=== PATIENT | female | born 1940 | race Caucasian/White ===

== ENCOUNTER 2017-03-15 14:06 | Inpatient (IN) | payer MEDICARE, BC ==
--- NOTE | 2017-03-15 14:21 | EDM.PDOC ---
ED HPI GENERAL MEDICAL PROBLEM - General Chief Complaint: Respiratory Problem Stated Complaint: SENT BY ANNA Time Seen by Provider: 03/15/17 14:20 Source of Information: Reports: Patient, Provider (I was contacted by physician working in the walk-in clinic over at [place]. Identified that she is exhibiting signs of congestive heart failure. They're not able to do cardiac markers but feel that she is too ill to go home.) History Limitations: Reports: No Limitations - History of Present Illness INITIAL COMMENTS - FREE TEXT/NARRATIVE: 76-year-old female presents the ED after being referred from [place] walk-in clinic. Patient currently has developed gradual increased dyspnea over the last 3-5 days. There is some suggestion that she has not been taking her Lasix tablets perhaps for the last 4 days. She is getting mixed up and what she spoke to take and has no close to what medicine she is taking. She does have a mild nonproductive cough. She has orthopnea and has had to wake up in the night short of breath and set up in the easy chair the last 3 nights to breathe. She does not use home oxygen. She feels a little weak and short of breath on minimal exertion. She appetite is rather poor as well. No fever or chills.Sputum production. Has a history of known congestive heart failure. Onset: Gradual (Probably over the last 4-5 days.) Onset Date: 03/10/17 Duration: Day(s): Location: Reports: Chest (Shortness of breath on minimal exertion and orthopnea. ) Quality: Reports: Same as Previous Episode Severity: Moderate Improves with: Reports: Rest Worsens with: Reports: Movement (Urine getting dressed makes her short of breath.) Context: Denies: Activity, Exercise, Lifting, Sick Contact, Trauma, Other Associated Symptoms: Reports: Confusion, Cough, Loss of Appetite, Malaise ( Nonproductive), Shortness of Breath, Weakness. Denies: Chest Pain, cough w sputum, Diaphoresis, Fever/Chills, Headaches, Nausea/Vomiting, Rash, Seizure, Syncope Treatments PANEL ASSEMBLER: Reports: Other (see below) Back Pain Score (Numeric/FACES): 5 - Related Data Allergies Allergy/AdvReac Type Severity Reaction Status Date / Time No Known Allergies Allergy Verified 12/22/15 11:58 Home Meds: Home Meds Aspirin [Ecotrin] 81 mg PO DAILY 12/22/15 [History] Calcium Carbonate [Calcium] 600 mg PO DAILY 12/22/15 [History] Cholecalciferol (Vitamin D3) [Vitamin D3] 1,000 units PO DAILY 12/22/15 [History ] Denosumab [Prolia] 60 mg SUBCUT ASDIRECTED 12/22/15 [History] Flaxseed Oil 1,000 mg PO DAILY 12/22/15 [History] Furosemide [Lasix] 40 mg PO DAILY 12/22/15 [History] Levothyroxine [Synthroid] 112 mcg PO DAILY 12/22/15 [History] Losartan [Cozaar] 50 mg PO DAILY 12/22/15 [History] Methotrexate 20 mg PO GILMAN 12/22/15 [History] Omeprazole 20 mg PO DAILY 12/22/15 [History] Prednisone [IJD: Prednisone] 10 mg PO WE 12/22/15 [History] Vitamin B Complex 1 cap PO DAILY 12/22/15 [History] Multivitamins,Therapeutic [Thera] 1 each PO WITHBREAKFAST tablet 12/27/15 [Rx] Naproxen Sodium 220 mg PO BID PRN 03/15/17 [History] Vitamin B Complex [B Complex] 1 tab PO DAILY 03/15/17 [History] Past Medical History Cardiovascular History: Reports: Afib (She is on Xarelto I believe because of atrial fibrillation), Heart Failure, Heart Murmur, High Cholesterol, Hypertension Respiratory History: Reports: Pulmonary Fibrosis (Questionable history of pulmonary fibrosis.) Genitourinary History: Reports: Urinary Incontinence (Stress and urge components.) Musculoskeletal History: Reports: Osteoarthritis, Osteoporosis Endocrine/Metabolic History: Reports: Hypothyroidism Social & Family History - Tobacco Use Smoking Status *Q: Never Smoker Years of Tobacco use: 40 Used Tobacco, but Quit: No - Recreational Drug Use Recreational Drug Use: No - Living Situation & Occupation Living situation: Reports: Occupation: Retired ED ROS GENERAL - Review of Systems Review Of Systems: See Below Constitutional: Reports: Malaise, Weakness, Fatigue, Decreased Appetite, Weight Loss. Denies: Fever, Chills HEENT: Reports: Hearing Loss. Denies: Contact Lenses, Nosebleed, Nose Pain, Rhinitis, Sinus Problem, Throat Pain (Mild.), Throat Swelling, Vertigo, Vision Change Respiratory: Reports: Shortness of Breath, Cough. Denies: Wheezing, Pleuritic Chest Pain, Sputum, Hemoptysis (Nonproductive) Cardiovascular: Reports: Blood Pressure Problem, Dyspnea on Exertion ( Chronically in both lower extremities), Edema, Orthopnea. Denies: Chest Pain, Claudication (Has mildly elevated high blood pressure), Lightheadedness (The last 3 nights.) Endocrine: Reports: No Symptoms GI/Abdominal: Reports: Constipation, Decreased Appetite. Denies: Abdominal Pain : Reports: Dysuria (noted yesterday), Frequency, Incontinence (Both stress and urge components.) Musculoskeletal: Reports: Joint Pain (Knees hips low back and neck at times) Skin: Reports: No Symptoms Neurological: Reports: Confusion (Mild at times.), Difficulty Walking (Due to getting short of breath). Denies: Trouble Speaking, Gait Disturbance Psychiatric: Reports: No Symptoms Hematologic/Lymphatic: Reports: No Symptoms Immunologic: Reports: No Symptoms ED EXAM, GENERAL - Physical Exam Exam: See Below Exam Limited By: No Limitations General Appearance: Alert, WD/WN, Mild Distress (O2 sats are 82% on room air. Placed on oxygen at 3 L/m by nasal prongs) Eye Exam: Bilateral Eye: Normal Inspection Throat/Mouth: Other (Tongue is mildly dry and shriveled and coated.) Head: Atraumatic, Normocephalic Neck: Normal Inspection, Limited Range of Motion. No: Supple, Carotid Bruit ( There is a aortic stenosis murmur that radiates up into the right carotid artery.), Lymphadenopathy (L), Lymphadenopathy (R) Respiratory/Chest: Chest Non-Tender, Respiratory Distress (Moderate tachypnea at rest.), Decreased Breath Sounds (Decreased air entry to the lower 25% of lung magaña posteriorly), Rales (Very fine crackles at the bases of both lungs.) . No: Rhonchi Cardiovascular: Regular Rate, Rhythm (Regular rhythm but no P waves are identified on the monitor. Questionable atrial fibrillation versus ectopic atrial rhythm.), JVD (3 cm below the angle of her mandible.), Systolic Murmur ( Grade 2/6 systolic ejection murmur pansystolic heard best at the right sternal border and radiates up into the right carotid artery suggestive of aortic stenosis. ), Other. No: Normal Peripheral Pulses Peripheral Pulses: 1+: Dorsalis Pedis (L), Dorsalis Pedis (R) GI/Abdominal: Normal Bowel Sounds, Soft, Non-Tender, No Organomegaly, No Abnormal Bruit, No Mass, Pelvis Stable Extremities: Pedal Edema (She is wearing a cast boot brace on her left leg. Apparently she broke her fibula 6 weeks ago in the cast boot brace is due to come off next week. 2-3+ pitting edema on the right lower extremity 2+ on the left lower extremity.), Other Neurological: Alert, Oriented, CN II-XII Intact, Normal Cognition, No Motor/ Sensory Deficits. No: Normal Gait, Normal Reflexes Psychiatric: Normal Affect, Normal Mood Skin Exam: Warm, Dry, Pallor (Mild pallor.) EKG INTERPRETATION EKG Date: 03/15/17 Time: 14:45 Rhythm: NSR Rate (Beats/Min): 97 [place]: Normal P-Wave: Present QRS: Other (There is decreased voltage in both the precordial and limb leads.) ST-T: Normal QT: Normal EKG Interpretation Comments: Normal ECG. Course - Vital Signs Last Recorded V/S: Last Vital Signs Temp 36.0 C 03/15/17 14:32 Pulse 99 03/15/17 14:32 Resp 27 H 03/15/17 14:32 BP 114/75 03/15/17 14:32 Pulse Ox 98 03/15/17 14:49 - Orders/Labs/Meds Orders: Active Orders 24 hr Category Date Time Status EKG Documentation Completion [RC] STAT Care 03/15/17 14:29 Active Oxygen Therapy [RC] ASDIRECTED Care 03/15/17 14:31 Active Peripheral IV Care [RC] . DIRECTED Care 03/15/17 14:30 Active CULTURE URINE [RM] Stat Lab 03/15/17 16:34 Uncollected Sodium Chloride 0.9% [Saline Flush] Med 03/15/17 14:30 Active 10 ml FLUSH ASDIRECTED PRN cefTRIAXone [Rocephin] 1 gm Med 03/15/17 16:49 Active Sodium Chloride 0.9% [Normal Saline] 100 ml IV ONETIME Peripheral IV Insertion Adult [OM.PC] Stat Oth 03/15/17 14:30 Ordered Medication Orders Ceftriaxone Sodium 1 gm/ (Sodium Chloride) 100 mls @ 200 mls/hr IV ONETIME ONE Stop: 03/15/17 17:18 Sodium Chloride (Saline Flush) 10 ml FLUSH ASDIRECTED PRN PRN Reason: Keep Vein Open Last Admin: 03/15/17 15:18 Dose: 10 ml Labs: Laboratory Tests 03/15/17 03/15/17 03/15/17 Range/Units 14:45 14:45 14:45 WBC 8.58 (3.98-10.04) K/mm3 RBC 4.01 (3.98-5.22) M/mm3 Hgb 12.0 (11.2-15.7) gm/L Hct 35.5 (34.1-44.9) % MCV 88.5 (79.4-94.8) fl MCH 29.9 (25.6-32.2) pg MCHC 33.8 (32.2-35.5) g/dl RDW Std Deviation 47.6 H (36.4-46.3) fL Plt Count 559 H (182-369) K/mm3 MPV 8.5 L (9.4-12.3) fl Neutrophils % (Manual) 89 H (40-60) % Band Neutrophils % 0 (0-10) % Lymphocytes % (Manual) 9 L (20-40) % Atypical Lymphs % 0 % Monocytes % (Manual) 2 (2-10) % Eosinophils % (Manual) 0 L (0.7-5.8) % Basophils % (Manual) 0 L (0.1-1.2) Platelet Estimate Increased Plt Morphology Comment See note Polychromasia 1+ slight Anisocytosis 1+ slight Macrocytosis 1+ slight RBC Morph Comment Not Reportable PT 12.5 (8.0-13.0) SECONDS INR 1.14 Sodium 133 L (136-145) mEq/L Potassium 4.0 (3.5-5.1) mEq/L Chloride 99 (98-107) mEq/L Carbon Dioxide 24 (21-32) mEq/L Anion Gap 14.0 (5-15) BUN 24 H (7-18) mg/dL Creatinine 1.4 H (0.55-1.02) mg/dL Est Cr Clr Drug Dosing 27.84 mL/min Estimated GFR (MDRD) 36 (>60) mL/min BUN/Creatinine Ratio 17.1 (14-18) Glucose 106 (83-115) mg/dL Calcium 9.6 (8.5-10.1) mg/dL Magnesium 1.9 (1.8-2.4) mg/dl Total Bilirubin 0.9 (0.2-1.0) mg/dL AST 44 H (15-37) U/L ALT 16 (14-59) U/L Alkaline Phosphatase 70 (46-116) U/L CK-MB (CK-2) 1.3 (0-3.6) ng/ml Troponin I < 0.017 (0.00-0.056) ng/mL C-Reactive Protein 17.8 H* (<1.0) mg/dL NT-Pro-B Natriuret Pep 1216 H (0-450) pg/mL Total Protein 7.4 (6.4-8.2) g/dl Albumin 2.5 L (3.4-5.0) g/dl Globulin 4.9 gm/dL Albumin/Globulin Ratio 0.5 L (1-2) Urine Color (Yellow) Urine Appearance (Clear) Urine pH (5.0-8.0) Ur Specific Mcconnell (1.005-1.030) Urine Protein (Negative) Urine Glucose (UA) (Negative) Urine Ketones (Negative) Urine Occult Blood (Negative) Urine Nitrite (Negative) Urine Bilirubin (Negative) Urine Urobilinogen (0.2-1.0) Ur Leukocyte Esterase (Negative) Urine RBC (0-5) /hpf Urine WBC (0-5) /hpf Ur Epithelial Cells (0-5) /hpf Urine Bacteria (FEW) /hpf Urine Mucus (FEW) /hpf 03/15/17 Range/Units 16:00 WBC (3.98-10.04) K/mm3 RBC (3.98-5.22) M/mm3 Hgb (11.2-15.7) gm/L Hct (34.1-44.9) % MCV (79.4-94.8) fl MCH (25.6-32.2) pg MCHC (32.2-35.5) g/dl RDW Std Deviation (36.4-46.3) fL Plt Count (182-369) K/mm3 MPV (9.4-12.3) fl Neutrophils % (Manual) (40-60) % Band Neutrophils % (0-10) % Lymphocytes % (Manual) (20-40) % Atypical Lymphs % % Monocytes % (Manual) (2-10) % Eosinophils % (Manual) (0.7-5.8) % Basophils % (Manual) (0.1-1.2) Platelet Estimate Plt Morphology Comment Polychromasia Anisocytosis Macrocytosis RBC Morph Comment PT (8.0-13.0) SECONDS INR Sodium (136-145) mEq/L Potassium (3.5-5.1) mEq/L Chloride (98-107) mEq/L Carbon Dioxide (21-32) mEq/L Anion Gap (5-15) BUN (7-18) mg/dL Creatinine (0.55-1.02) mg/dL Est Cr Clr Drug Dosing mL/min Estimated GFR (MDRD) (>60) mL/min BUN/Creatinine Ratio (14-18) Glucose (83-115) mg/dL Calcium (8.5-10.1) mg/dL Magnesium (1.8-2.4) mg/dl Total Bilirubin (0.2-1.0) mg/dL AST (15-37) U/L ALT (14-59) U/L Alkaline Phosphatase (46-116) U/L CK-MB (CK-2) (0-3.6) ng/ml Troponin I (0.00-0.056) ng/mL C-Reactive Protein (<1.0) mg/dL NT-Pro-B Natriuret Pep (0-450) pg/mL Total Protein (6.4-8.2) g/dl Albumin (3.4-5.0) g/dl Globulin gm/dL Albumin/Globulin Ratio (1-2) Urine Color Yellow (Yellow) Urine Appearance Clear (Clear) Urine pH 6.0 (5.0-8.0) Ur Specific Mcconnell 1.015 (1.005-1.030) Urine Protein Negative (Negative) Urine Glucose (UA) Negative (Negative) Urine Ketones Negative (Negative) Urine Occult Blood Negative (Negative) Urine Nitrite Negative (Negative) Urine Bilirubin Negative (Negative) Urine Urobilinogen 1.0 (0.2-1.0) Ur Leukocyte Esterase 2+ H (Negative) Urine RBC 0-5 (0-5) /hpf Urine WBC 10-20 H (0-5) /hpf Ur Epithelial Cells 5-10 H (0-5) /hpf Urine Bacteria Moderate H (FEW) /hpf Urine Mucus Not seen (FEW) /hpf Meds: Medications Generic Name Dose Route Start Last Admin Trade Name Freq PRN Reason Stop Dose Admin Ceftriaxone Sodium 1 gm/ 100 mls @ 200 mls/hr 03/15/17 16:49 Sodium Chloride IV 03/15/17 17:18 ONETIME ONE Sodium Chloride 10 ml 03/15/17 14:30 03/15/17 15:18 Saline Flush FLUSH 10 ml ASDIRECTED PRN Administration Keep Vein Open Discontinued Medications Generic Name Dose Route Start Last Admin Trade Name Freq PRN Reason Stop Dose Admin Furosemide 40 mg 03/15/17 14:32 03/15/17 15:12 Lasix IVPUSH 03/15/17 14:33 40 mg NOW ONE Administration - Radiology Interpretation Free Text/Narrative:: 76 year old female sent to the ED from [place] walk-in clinic where she presented with dyspnea. It is suspect that she has been noncompliant with her medications over the last 2-3 days. Today not taking her Lasix for her heart failure. She has orthopnea and his sats to sit up in the easy chair to get her breath last 2-3 nights. Does have a nonproductive cough. No fever or chills. She is on Xarelto to prevent DVT in the left leg since she has been in a boot cast since breaking her fibula 6 weeks ago. She is in sinus rhythm at 97/m. She is tachypneic at rest with O2 sats of only 82% on room air. She will be placed on 3 L/m by nasal cannula. This achieved O2 sats of 97%. Plan routine labs to include troponin CK-MB fractions. Fibroglandular labs were done over at [facility] but they did not do troponins are magnesium hour BMPs. Patient is potentially immunocompromised due to rheumatoid arthritis and being on methotrexate. - Re-Assessments/Exams Free Text/Narrative Re-Assessment/Exam: 03/15/17 14:54 ECG shows sinus rhythm at 97/m with no signs of ischemia. Chest x -ray reveals a diffuse reticular pattern suggestive of pulmonary fibrosis when compared to chest x-ray in February 2016 the lungs were clear at that time. This would suggest that the fine reticular pattern is likely vascular in origin. Plan peripheral IV lock Lasix 40 mg IV. 03/15/17 15:49 White count is 8.58. Hemoglobin is 12.0 hematocrit of 35.5. Platelet count is elevated at 559,000. Differential pending. PT is 12.5 INR is 1.14. Sodium slightly low at 133 potassium 4.0. Chloride 99 bicarbonate 24. And a gap is 14.0 BUNs is 24. Creatinine is 1.4. GFR is 36. Glucose 106 calcium 9.6 magnesium normal 1.9. AST is mildly elevated at 44. CK-MB fraction is normal 1.3 troponin I is less than 0.017. BNP is 1216 .otal protein is 7.4 of the abdomen fraction is low at 2.5. Urinalysis is pending 03/15/17 16:01 CRP is markedly elevated at 17.8. 03/15/17 17:[address] Frias --video control operator hospitalist and patient will be admitted to the hospital MedSur status on telemetry. Departure - Departure Time of Disposition: 17:03 Disposition: Admitted As Inpatient 65 Condition: Fair Clinical Impression: Hypoxia, Chronic renal insufficiency, stage III (moderate), Osteoporosis, Rheumatoid arthritis Urinary tract infection Qualifiers: Urinary tract infection type: acute cystitis Acute exacerbation of CHF (congestive heart failure) Qualifiers: Congestive heart failure type: diastolic Qualified Code(s): I50.33 - Acute on chronic diastolic (congestive) heart failure - Discharge Information Referrals: aKllie Cazares MD [Primary Care Provider] - Forms: ED Department Discharge - My Orders Last 24 Hours: My Active Orders 03/15/17 14:29 EKG Documentation Completion [RC] STAT 03/15/17 14:30 Peripheral IV Care [RC] . DIRECTED Sodium Chloride 0.9% [Saline Flush] 10 ml FLUSH ASDIRECTED PRN Peripheral IV Insertion Adult [OM.PC] Stat 03/15/17 14:31 Oxygen Therapy [RC] ASDIRECTED 03/15/17 16:34 CULTURE URINE [RM] Stat 03/15/17 16:49 cefTRIAXone [Rocephin] 1 gm Sodium Chloride 0.9% [Normal Saline] 100 ml IV ONETIME - Assessment/Plan Last 24 Hours: My Active Orders 03/15/17 14:29 EKG Documentation Completion [RC] STAT 03/15/17 14:30 Peripheral IV Care [RC] . DIRECTED Sodium Chloride 0.9% [Saline Flush] 10 ml FLUSH ASDIRECTED PRN Peripheral IV Insertion Adult [OM.PC] Stat 03/15/17 14:31 Oxygen Therapy [RC] ASDIRECTED 03/15/17 16:34 CULTURE URINE [RM] Stat 03/15/17 16:49 cefTRIAXone [Rocephin] 1 gm Sodium Chloride 0.9% [Normal Saline] 100 ml IV ONETIME
[2017-03-15] MEDS ORDERED: Sodium Chloride 0.9% 10 ML Syringe FLUSH PRN (14:30)
[2017-03-15] MEDS ORDERED: Furosemide 40 MG/4 ML VIAL IVPUSH ONE (14:32)
--- NOTE | 2017-03-15 14:54 | CR ---
Chest: Portable view of the chest was obtained. Comparison: Prior chest x-ray of 12/22/15. Heart size and mediastinum are within normal limits for portable technique. Lung markings are slightly increased some of which is accentuated from technique. Difficult to exclude mild pulmonary vascular congestion or other interstitial process. No alveolar type densities are seen. Slight scoliosis is noted within the spine. Bony structures are osteopenic. Two orthopedic screws are seen within the right humerus. Impression: 1. Lung markings are slightly increased as described above. Other incidental findings. Diagnostic code #3
[2017-03-15] MEDS ORDERED: cefTRIAXone 1 GM in Sodium Chloride 0.9% 100 ML IV ONE (16:49)
--- NOTE | 2017-03-15 17:43 | PCM.HP ---
H&P History of Present Illness - General Date of Service: 03/22/17 Admit Problem/Dx: Admission Diagnosis/Problem Admission Diagnosis/Problem Hypoxia Source of Information: Patient, Old Records, Provider, RN Notes Reviewed History Limitations: Reports: No Limitations, Physical Impairment - History of Present Illness Initial Comments - Free Text/Narative: This is a 76 yo elderly white female with past medical hx/o defibrillation, heart failure with unknown EF, heart murmur, hyperlipidemia, hypertension, pulmonary fibrosis, RA, urinary incontinence, osteoarthritis, osteoporosis, and hypothyroidism,who presents to the emergency department with complaints of worsening dyspnea for over 3 days now. She admits to nonproductive cough, orthopnea and shortness of breath. She carries a history of pulmonary fibrosis but she is not on home O2. Per ED notes, patient has stopped taking her Lasix in the past 4 days. Her initial workup in emergency department shows a CBC remarkable for platelet of 559, neutrophils of 89% and lymphocytes of 9%. Her chemistry is remarkable for sodium of 133, BUN of 24, creatinine of 1.4, AST of 44, CRP of 17.8, proBNP of 1216, and albumin of 2.5. Her UA is suggestive of urinary tract infection. Her CXR shows increased lung markings. Patient is being admitted for respiratory distress/hypoxia and acute congestive heart failure. She is CPR only. Back Pain Score (Numeric/FACES): 5 - Related Data Allergies/Adverse Reactions: Allergies Allergy/AdvReac Type Severity Reaction Status Date / Time No Known Allergies Allergy Verified 12/22/15 11:58 Home Medications: Home Meds Aspirin [Ecotrin] 81 mg PO DAILY 12/22/15 [History] Calcium Carbonate [Calcium] 600 mg PO DAILY 12/22/15 [History] Cholecalciferol (Vitamin D3) [Vitamin D3] 1,000 units PO DAILY 12/22/15 [History ] Denosumab [Prolia] 60 mg SUBCUT ASDIRECTED 12/22/15 [History] Flaxseed Oil 1,000 mg PO DAILY 12/22/15 [History] Furosemide [Lasix] 60 mg PO DAILY 12/22/15 [History] Levothyroxine [Synthroid] 112 mcg PO DAILY 12/22/15 [History] Losartan [Cozaar] 50 mg PO DAILY 12/22/15 [History] Methotrexate 20 mg PO GILMAN 12/22/15 [History] Omeprazole 20 mg PO DAILY 12/22/15 [History] Prednisone [IJD: Prednisone] 10 mg PO WE 12/22/15 [History] Multivitamins,Therapeutic [Thera] 1 each PO WITHBREAKFAST tablet 12/27/15 [Rx] Naproxen Sodium 220 mg PO BID PRN 03/15/17 [History] Vitamin B Complex [B Complex] 1 tab PO DAILY 03/15/17 [History] Past Medical History Cardiovascular History: Reports: Afib (She is on Xarelto I believe because of atrial fibrillation), Heart Failure, Heart Murmur, High Cholesterol, Hypertension Respiratory History: Reports: Pulmonary Fibrosis (Questionable history of pulmonary fibrosis.) Other Respiratory History: congestive heartr failure Genitourinary History: Reports: Urinary Incontinence (Stress and urge components.) Musculoskeletal History: Reports: Osteoarthritis, Osteoporosis Endocrine/Metabolic History: Reports: Hypothyroidism - Past Surgical History HEENT Surgical History: Reports: Cataract Surgery Social & Family History - Tobacco Use Smoking Status *Q: Never Smoker Years of Tobacco use: 40 Used Tobacco, but Quit: No Month Tobacco Last Used: 20 yrs - Caffeine Use Caffeine Use: Reports: Coffee, Tea - Recreational Drug Use Recreational Drug Use: No - Living Situation & Occupation Living situation: Reports: Occupation: Retired H&P Review of Systems - Review of Systems: Review Of Systems: See Below General: Reports: Malaise, Weakness, Fatigue, Decreased Appetite. Denies: Fever , Chills HEENT: Reports: No Symptoms Pulmonary: Reports: Shortness of Breath, Cough Cardiovascular: Reports: Dyspnea on Exertion, Orthopnea, Edema, Blood Pressure Problem. Denies: Chest Pain, Lightheadedness Gastrointestinal: Reports: Constipation, Decreased Appetite. Denies: Abdominal Pain, Nausea, Vomiting Genitourinary: Reports: Dysuria, Frequency, Incontinence Musculoskeletal: Reports: Joint Pain Skin: Denies: Cyanosis, Jaundice, Mottled, Pallor, Diaphoresis, Bruising, Rash, Erythema, Change in Color Psychiatric: Reports: Confusion (intermittent) Neurological: Reports: Difficulty Walking, Weakness, Gait Disturbance. Denies: Pre-Existing Deficit Hematologic/Lymphatic: Reports: No Symptoms Immunologic: Reports: No Symptoms Exam - Exam Exam: See Below - Vital Signs Vital Signs: Last Vital Signs Temp 36.0 C 03/15/17 14:32 Pulse 99 03/15/17 14:32 Resp 27 H 03/15/17 14:32 BP 114/75 03/15/17 14:32 Pulse Ox 98 03/15/17 14:49 Weight: 61.235 kg - Exam Quality Assessment: Supplemental Oxygen General: Alert, Oriented, Cooperative. No: Mild Distress HEENT: Conjunctiva Clear, EACs Clear, Hearing Intact, Nares Patent, Normal Nasal Septum, Posterior Pharynx Clear, Pupils Equal, Pupils Reactive. No: Mucosa Moist & [place] Neck: Supple, Trachea Midline, +2 Carotid Pulse wo Bruit Lungs: Decreased Breath Sounds, Rales Cardiovascular: Regular Rate, Regular Rhythm, Systolic Murmur GI/Abdominal Exam: Normal Bowel Sounds, Soft, Non-Tender, No Organomegaly, No Distention, No Abnormal Bruit (Female) Exam: Deferred Rectal (Female) Exam: Deferred Back Exam: Normal Inspection, Decreased Range of Motion Extremities: Normal Inspection, Normal Range of Motion, Non-Tender, Pedal Edema , Limited Range of Motion (left lower extremity due to cast boot). No: Increased Warmth Skin: Warm, Dry, Intact Neuro Extensive - Mental Status: Oriented x3, Normal Cognition, Memory Intact Neuro Extensive - Motor, Sensory, Reflexes: CN II-XII Intact (limited but grossly intact), Abnormal Gait Psychiatric: Alert, Normal Affect, Normal Mood - Patient Data Lab Results Last 24 hrs: Laboratory Results - last 24 hr 03/15/17 03/15/17 03/15/17 Range/Units 14:45 14:45 14:45 WBC 8.58 (3.98-10.04) K/mm3 RBC 4.01 (3.98-5.22) M/mm3 Hgb 12.0 (11.2-15.7) gm/L Hct 35.5 (34.1-44.9) % MCV 88.5 (79.4-94.8) fl MCH 29.9 (25.6-32.2) pg MCHC 33.8 (32.2-35.5) g/dl RDW Std Deviation 47.6 H (36.4-46.3) fL Plt Count 559 H (182-369) K/mm3 MPV 8.5 L (9.4-12.3) fl Neutrophils % (Manual) 89 H (40-60) % Band Neutrophils % 0 (0-10) % Lymphocytes % (Manual) 9 L (20-40) % Atypical Lymphs % 0 % Monocytes % (Manual) 2 (2-10) % Eosinophils % (Manual) 0 L (0.7-5.8) % Basophils % (Manual) 0 L (0.1-1.2) Platelet Estimate Increased Plt Morphology Comment See note Polychromasia 1+ slight Anisocytosis 1+ slight Macrocytosis 1+ slight RBC Morph Comment Not Reportable PT 12.5 (8.0-13.0) SECONDS INR 1.14 Sodium 133 L (136-145) mEq/L Potassium 4.0 (3.5-5.1) mEq/L Chloride 99 (98-107) mEq/L Carbon Dioxide 24 (21-32) mEq/L Anion Gap 14.0 (5-15) BUN 24 H (7-18) mg/dL Creatinine 1.4 H (0.55-1.02) mg/dL Est Cr Clr Drug Dosing 27.84 mL/min Estimated GFR (MDRD) 36 (>60) mL/min BUN/Creatinine Ratio 17.1 (14-18) Glucose 106 (83-115) mg/dL Calcium 9.6 (8.5-10.1) mg/dL Magnesium 1.9 (1.8-2.4) mg/dl Total Bilirubin 0.9 (0.2-1.0) mg/dL AST 44 H (15-37) U/L ALT 16 (14-59) U/L Alkaline Phosphatase 70 (46-116) U/L CK-MB (CK-2) 1.3 (0-3.6) ng/ml Troponin I < 0.017 (0.00-0.056) ng/mL C-Reactive Protein 17.8 H* (<1.0) mg/dL NT-Pro-B Natriuret Pep 1216 H (0-450) pg/mL Total Protein 7.4 (6.4-8.2) g/dl Albumin 2.5 L (3.4-5.0) g/dl Globulin 4.9 gm/dL Albumin/Globulin Ratio 0.5 L (1-2) Urine Color (Yellow) Urine Appearance (Clear) Urine pH (5.0-8.0) Ur Specific [place] (1.005-1.030) Urine Protein (Negative) Urine Glucose (UA) (Negative) Urine Ketones (Negative) Urine Occult Blood (Negative) Urine Nitrite (Negative) Urine Bilirubin (Negative) Urine Urobilinogen (0.2-1.0) Ur Leukocyte Esterase (Negative) Urine RBC (0-5) /hpf Urine WBC (0-5) /hpf Ur Epithelial Cells (0-5) /hpf Urine Bacteria (FEW) /hpf Urine Mucus (FEW) /hpf //17 Range/Units 16:00 WBC (3.98-10.04) K/mm3 RBC (3.98-5.22) M/mm3 Hgb (11.2-15.7) gm/L Hct (34.1-44.9) % MCV (79.4-94.8) fl MCH (25.6-32.2) pg MCHC (32.2-35.5) g/dl RDW Std Deviation (36.4-46.3) fL Plt Count (182-369) K/mm3 MPV (9.4-12.3) fl Neutrophils % (Manual) (40-60) % Band Neutrophils % (0-10) % Lymphocytes % (Manual) (20-40) % Atypical Lymphs % % Monocytes % (Manual) (2-10) % Eosinophils % (Manual) (0.7-5.8) % Basophils % (Manual) (0.1-1.2) Platelet Estimate Plt Morphology Comment Polychromasia Anisocytosis Macrocytosis RBC Morph Comment PT (8.0-13.0) SECONDS INR Sodium (136-145) mEq/L Potassium (3.5-5.1) mEq/L Chloride (98-107) mEq/L Carbon Dioxide (21-32) mEq/L Anion Gap (5-15) BUN (7-18) mg/dL Creatinine (0.55-1.02) mg/dL Est Cr Clr Drug Dosing mL/min Estimated GFR (MDRD) (>60) mL/min BUN/Creatinine Ratio (14-18) Glucose (83-115) mg/dL Calcium (8.5-10.1) mg/dL Magnesium (1.8-2.4) mg/dl Total Bilirubin (0.2-1.0) mg/dL AST (15-37) U/L ALT (14-59) U/L Alkaline Phosphatase (46-116) U/L CK-MB (CK-2) (0-3.6) ng/ml Troponin I (0.00-0.056) ng/mL C-Reactive Protein (<1.0) mg/dL NT-Pro-B Natriuret Pep (0-450) pg/mL Total Protein (6.4-8.2) g/dl Albumin (3.4-5.0) g/dl Globulin gm/dL Albumin/Globulin Ratio (1-2) Urine Color Yellow (Yellow) Urine Appearance Clear (Clear) Urine pH 6.0 (5.0-8.0) Ur Specific [place] 1.015 (1.005-1.030) Urine Protein Negative (Negative) Urine Glucose (UA) Negative (Negative) Urine Ketones Negative (Negative) Urine Occult Blood Negative (Negative) Urine Nitrite Negative (Negative) Urine Bilirubin Negative (Negative) Urine Urobilinogen 1.0 (0.2-1.0) Ur Leukocyte Esterase 2+ H (Negative) Urine RBC 0-5 (0-5) /hpf Urine WBC 10-20 H (0-5) /hpf Ur Epithelial Cells 5-10 H (0-5) /hpf Urine Bacteria Moderate H (FEW) /hpf Urine Mucus Not seen (FEW) /hpf Result Diagrams: 03/16/17 05:50 03/16/17 05:50 EKG INTERPRETATION EKG Date: 03/15/17 Time: 14:45 Rhythm: NSR Rate (Beats/Min): 97 [place]: Normal P-Wave: Present QT: Normal *Q Meaningful Use (ADM) - VTE *Q VTE Criteria *Q: - Stroke *Q Stroke Criteria *Q: - AMI *Q AMI Criteria *Q: Problem List Initiated/Reviewed/Updated: Yes Orders Last 24hrs: Active Orders 24 hr Category Date Time Status Admission Status [Patient Status] [ADT] Routine ADT 03/15/17 17:03 Active EKG Documentation Completion [RC] STAT Care 03/15/17 14:29 Active Oxygen Therapy [RC] ASDIRECTED Care 03/15/17 14:31 Active Peripheral IV Care [RC] . DIRECTED Care 03/15/17 14:30 Active CULTURE URINE [RM] Stat Lab 03/15/17 16:00 Received Sodium Chloride 0.9% [Saline Flush] Med 03/15/17 14:30 Active 10 ml FLUSH ASDIRECTED PRN Peripheral IV Insertion Adult [OM.PC] Stat Oth 03/15/17 14:30 Ordered Medication Orders Sodium Chloride (Saline Flush) 10 ml FLUSH ASDIRECTED PRN PRN Reason: Keep Vein Open Last Admin: 03/15/17 15:18 Dose: 10 ml Assessment/Plan Comment:: Assessment/Plan: Acute: Respiratory Distress/Hypoxia - Likely 2/2 CHF and Pulmonary Fibrosis - Supplemental O2 CHF with Unknown EF - Mild - ProBNP 1216 - CXR shows pulmonary vascular congestion and fibrosis - Heart failure protocol: diuretics, salt/fluid restriction, is/os and daily weight check - 2D echo in AM UTI - UA suggestive of UTI - Pos suprapubic tenderness - Risk Factor: Urinary Incontinence - Received IV Rocephin in ED; will continue Abx - UA Cx/Sx Elevated CRP - 2/2 RA or Auto-immune Disease Chronic: Hx/o PAF; now off xarelto HF with Unknown EF HTN HLD Pulmonary Fibrosis RA Urinary Incontinence: Mixed OA Osteoporosis Hypothyroidism Plan: Admit to Med-Surg Routine AM Labs Resume Home Meds PT/OT/RT consult DVT PPx: Lovenox SubQ daily SW/CM for d/c planning Code status: CPR only Additional orders as above
[2017-03-15] MEDS ORDERED: Ondansetron 4 MG/2 ML SDV IV PRN (17:56)
[2017-03-15] MEDS ORDERED: Promethazine 12.5 MG in Sodium Chloride 0.9% 50 ML IV PRN (17:56)
[2017-03-15] MEDS ORDERED: Bisacodyl 5 MG Tab PO PRN (17:56)
[2017-03-15] MEDS ORDERED: Temazepam 7.5 MG Cap PO PRN (17:56)
[2017-03-15] MEDS ORDERED: Docusate Sodium 100 MG Cap PO PRN (17:56)
[2017-03-15] MEDS ORDERED: HYDROmorphone 0.5 MG/0.5 ML Syringe IVPUSH PRN (17:56)
[2017-03-15] MEDS ORDERED: Polyethylene Glycol 3350 Powder 17 GM Packet PO PRN (17:56)
[2017-03-15] MEDS ORDERED: LORazepam 2 MG/ML MDV IV PRN (17:56)
[2017-03-15] MEDS ORDERED: hydrALAZINE 20 MG/ML SDV IVPUSH PRN (18:01)
[2017-03-15] MEDS ORDERED: Denosumab 60 MG/1 ML Syringe SUBCUT SCH (18:15)
[2017-03-15] MEDS ORDERED: Magnesium Sulfate/Water 2 GM in Premix Bag 1 BAG IV ONE (19:15)
[2017-03-15] MEDS: Furosemide 20 MG Tab PO SCH (22:31)
[2017-03-15] MEDS ORDERED: Magnesium Sulfate/Water 50 ML IV ONE (23:00)
[2017-03-15] MEDS ORDERED: Diphtheria,Pertussis(Acell),Tetanus Vaccine 0.5 ML SDV IM ONE (23:34)
[2017-03-16] MEDS: Albuterol/Ipratropium 3.0-0.5 MG/3 ML Neb Soln NEB PRN ×3 (05:23→21:34)
[2017-03-16] MEDS: Levothyroxine 112 MCG Tab PO SCH (06:02)
[2017-03-16] MEDS: Pantoprazole 40 MG Tab.CR PO SCH (06:02)
[2017-03-16] MEDS: Multivitamins,Therapeutic Tab PO SCH (06:02)
[2017-03-16] MEDS: Furosemide 20 MG Tab PO SCH ×2 (06:03→13:43)
--- NOTE | 2017-03-16 07:04 | PCM.PN ---
- General Info Date of Service: 03/16/17 Admission Dx/Problem (Free Text): Admission Diagnosis/Problem Admission Diagnosis/Problem Hypoxia Subjective Update: Follow Up Functional Status: Reports: Pain Controlled, Tolerating Diet, Urinating. Denies : New Symptoms - Review of Systems General: Denies: Fever, Chills HEENT: Reports: No Symptoms Pulmonary: Reports: Shortness of Breath. Denies: Cough Cardiovascular: Denies: Chest Pain, Palpitations, Dyspnea on Exertion, Lightheadedness Gastrointestinal: Denies: Abdominal Pain, Nausea, Vomiting Genitourinary: Reports: No Symptoms Musculoskeletal: Reports: No Symptoms Skin: Denies: Cyanosis, Pallor, Diaphoresis, Bruising Neurological: Reports: Confusion (intermittent), Difficulty Walking, Gait Disturbance. Denies: Weakness Psychiatric: Denies: No Symptoms, Depression, Anxiety, Hallucinations Systems Review Comment:: No significant overnight or acute issues. She feels better this morning. She did not sleep well due to constant beeping noise of her O2 monitor. She denies any chest pain or difficulty breathing. No fever or chills. - Patient Data Vitals - Most Recent: Last Vital Signs Temp 36.9 C 03/16/17 03:45 Pulse 99 03/16/17 03:45 Resp 16 03/16/17 03:45 BP 112/55 L 03/16/17 03:45 Pulse Ox 92 L 03/16/17 05:45 Weight - Most Recent: 61.235 kg I&O - Last 24 Hours: Intake & Output 03/15/17 03/16/17 03/16/17 22:59 06:59 14:59 Intake Total 640 Output Total 500 Balance 140 Lab Results Last 24 Hours: Laboratory Results - last 24 hr 03/16/17 03/16/17 Range/Units 05:50 05:50 WBC 8.03 (3.98-10.04) K/mm3 RBC 3.71 L (3.98-5.22) M/mm3 Hgb 10.9 L (11.2-15.7) gm/L Hct 33.2 L (34.1-44.9) % MCV 89.5 (79.4-94.8) fl MCH 29.4 (25.6-32.2) pg MCHC 32.8 (32.2-35.5) g/dl RDW Std Deviation 47.7 H (36.4-46.3) fL Plt Count 487 H (182-369) K/mm3 MPV 8.7 L (9.4-12.3) fl Neut % (Auto) 78.7 H (34.0-71.1) % Lymph % (Auto) 15.6 L (19.3-51.7) % [place] % (Auto) 2.9 L (4.7-12.5) % Eos % (Auto) 2.1 (0.7-5.8) Baso % (Auto) 0.2 (0.1-1.2) % Neut # (Auto) 6.32 H (1.56-6.13) K/mm3 Lymph # (Auto) 1.25 (1.18-3.74) K/mm3 [place] # (Auto) 0.23 L (0.24-0.36) K/mm3 Eos # (Auto) 0.17 (0.04-0.36) K/mm3 Baso # (Auto) 0.02 (0.01-0.08) K/mm3 Sodium 135 L (136-145) mEq/L Potassium 3.7 (3.5-5.1) mEq/L Chloride 101 (98-107) mEq/L Carbon Dioxide 23 (21-32) mEq/L Anion Gap 14.7 (5-15) BUN 23 H (7-18) mg/dL Creatinine 1.2 H (0.55-1.02) mg/dL Est Cr Clr Drug Dosing 33.90 mL/min Estimated GFR (MDRD) 44 (>60) mL/min BUN/Creatinine Ratio 19.2 H (14-18) Glucose 115 (83-115) mg/dL Calcium 9.3 (8.5-10.1) mg/dL Magnesium 2.3 (1.8-2.4) mg/dl Med Orders - Current: Current Medications Acetaminophen (Tylenol) 650 mg PO Q4H PRN PRN Reason: Pain (Mild 1-3)/fever Hydrocodone Bitart/Acetaminophen ([place] 325-5 Mg) 1 tab PO Q4H PRN PRN Reason: Pain (moderate 4-6) Albuterol/Ipratropium (Duoneb 3.0-0.5 Mg/3 Ml) 3 ml NEB Q4H PRN PRN Reason: Shortness Of Breath/wheezing Last Admin: 03/16/17 05:23 Dose: 3 ml Aspirin (Halfprin) 81 mg PO DAILY [facility] Bisacodyl (Dulcolax) 5 mg PO DAILY PRN PRN Reason: Constipation Calcium Carbonate/Glycine (Calcium Carbonate) 600 mg PO DAILY [facility] Cholecalciferol (Vitamin D3) 1,000 units PO DAILY [facility] Denosumab (Prolia) 60 mg SUBCUT ASDIRECTED [facility] Docusate Sodium (Colace) 100 mg PO BID PRN PRN Reason: Constipation Enoxaparin Sodium (Lovenox) 30 mg SUBCUT DAILY [facility] Furosemide (Lasix) 20 mg PO BIDDIURETIC [facility] Last Admin: 03/16/17 06:03 Dose: 20 mg Hydralazine HCl (Apresoline) 10 mg IVPUSH Q4H PRN PRN Reason: Hypertension Hydromorphone HCl (Dilaudid) 0.25 mg IVPUSH Q2H PRN PRN Reason: Pain (severe 7-10) Promethazine HCl 12.5 mg/ (Sodium Chloride) 50.5 mls @ 100 mls/hr IV Q6H PRN PRN Reason: Nausea/Vomiting Ceftriaxone Sodium 1 gm/ (Sodium Chloride) 100 mls @ 200 mls/hr IV Q24H [facility] Levothyroxine Sodium (Levothyroxine) 112 mcg PO ACBRK [facility] Last Admin: 03/16/17 06:02 Dose: 112 mcg Lorazepam (Ativan) 0.5 mg IV Q6H PRN PRN Reason: Anxiety Magnesium Sulfate (Pharmacy To Dose - Magnesium Replacement) 1 dose .XX ASDIRECTED [facility] Methotrexate (Methotrexate) 20 mg PO GILMAN [facility] Metoprolol Tartrate (Lopressor) 5 mg IVPUSH Q4H PRN PRN Reason: Tachycardia Multivitamins (Thera) 1 each PO WITHBREAKFAST [facility] Last Admin: 03/16/17 06:02 Dose: 1 each Non-Formulary Medication (Flaxseed Oil) 1,000 mg PO DAILY [facility] Ondansetron HCl (Zofran) 4 mg IV Q6H PRN PRN Reason: Nausea/Vomiting Pantoprazole Sodium (Protonix) 40 mg PO DAILY@0700 [facility] Last Admin: 03/16/17 06:02 Dose: 40 mg Polyethylene Glycol (Miralax) 17 gm PO DAILY PRN PRN Reason: Constipation Potassium Chloride (Pharmacy To Dose - Potassium Replacement) 1 dose .XX ASDIRECTED [facility] Prednisone (Prednisone) 10 mg PO We@0800 [facility] Senna/Docusate Sodium (Senna Plus) 1 tab PO BID PRN PRN Reason: Constipation Sodium Chloride (Saline Flush) 10 ml FLUSH ASDIRECTED PRN PRN Reason: Keep Vein Open Last Admin: 03/15/17 15:18 Dose: 10 ml Temazepam (Restoril) 7.5 mg PO BEDTIME PRN PRN Reason: Sleep Vitamin B Complex/Vitamin C (Super B With Vitamin C) 1 cap PO DAILY [facility] Discontinued Medications Diphtheria/Tetanus/Acell Pertussis (Adacel) 0.5 ml IM .ONCE ONE Stop: 03/15/17 23:35 Furosemide (Lasix) 40 mg IVPUSH NOW ONE Stop: 03/15/17 14:33 Last Admin: 03/15/17 15:12 Dose: 40 mg Ceftriaxone Sodium 1 gm/ (Sodium Chloride) 100 mls @ 200 mls/hr IV ONETIME ONE Stop: 03/15/17 17:18 Last Admin: 03/15/17 17:05 Dose: 200 mls/hr Magnesium Sulfate (Magnesium Sulfate 2 Gm In Water 50 Ml) 50 mls @ 50 mls/hr IV ONETIME ONE Stop: 03/15/17 23:59 Last Admin: 03/15/17 23:18 Dose: 50 mls/hr - Exam Quality Assessment: Supplemental Oxygen General: Alert, Oriented, Cooperative, No Acute Distress HEENT: Pupils Equal, Pupils Reactive, EOMI, Mucous Membr. Moist/[place] Neck: Supple, Trachea Midline Lungs: Normal Respiratory Effort, Decreased Breath Sounds Cardiovascular: Regular Rate, Regular Rhythm GI/Abdominal Exam: Normal Bowel Sounds, Soft, Non-Tender, No Organomegaly, No Distention (Female) Exam: Deferred Back Exam: Normal Inspection, Decreased Range of Motion Extremities: Normal Inspection, Normal Range of Motion, Non-Tender, No Pedal Edema, Normal Capillary Refill Peripheral Pulses: 2+: Dorsalis Pedis (L), Dorsalis Pedis (R) Skin: Warm, Dry, Intact Neurological: No New Focal Deficit. No: Normal Gait Psy/Mental Status: Alert, Normal Affect, Normal Mood - Problem List Review Problem List Initiated/Reviewed/Updated: Yes - My Orders Last 24 Hours: My Active Orders 03/15/17 17:56 Resuscitation Status Routine 03/15/17 23:34 Vaccines to be Administered [RC] 11 03/16/17 07:00 Echo Comp wo Cont [US] Stat 03/16/17 09:00 Enoxaparin [Lovenox] 30 mg SUBCUT DAILY 03/16/17 17:00 cefTRIAXone [Rocephin] 1 gm Sodium Chloride 0.9% [Normal Saline] 100 ml IV Q24H - Plan Plan:: Assessment/Plan: Acute: Respiratory Distress/Hypoxia - Likely 2/2 CHF and Pulmonary Fibrosis - Supplemental O2; currently at 5L this am - She appears stable - Follow Up CXR shows increasing interstitial change like due to worsening pulmonary vascular congestion - BNP 1216 ---> 821 today - IS and FV as directed CHF with Unknown EF - Mild - ProBNP 1216 --> 821 - CXR shows pulmonary vascular congestion and fibrosis - Continue Heart failure protocol: diuretics, salt/fluid restriction, is/os and daily weight check - 2D echo completed UTI - UA suggestive of UTI - Pos suprapubic tenderness - Risk Factor: Urinary Incontinence - Received IV Rocephin in ED; will continue Abx - UA Cx/Sx- still pending Elevated CRP - 2/2 RA or Auto-immune Disease Chronic: Hx/o PAF; now off xarelto HF with Unknown EF HTN HLD Pulmonary Fibrosis RA Urinary Incontinence: Mixed OA Osteoporosis Hypothyroidism Plan: She is looks better than yesterday; she reports no increased shortness of breath She is alert/awake and reasonable APPLICATION IN[employer]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
[2017-03-16] MEDS ORDERED: FLAXSEED OIL 1000 MG PO SCH (09:00)
[2017-03-16] MEDS: Aspirin 81 MG Tab.EC PO SCH (10:43)
[2017-03-16] MEDS: Calcium Carbonate 600 MG Tab PO SCH (10:43)
[2017-03-16] MEDS: Vitamin B Complex With Vitamin C Cap PO SCH (10:43)
[2017-03-16] MEDS: Enoxaparin 40 MG/0.4 ML Syringe SUBCUT SCH (10:43)
[2017-03-16] MEDS: Cholecalciferol (Vitamin D3) 1,000 Unit Tab PO SCH (10:43)
--- NOTE | 2017-03-16 12:29 | CR ---
Chest: Portable view of the chest was obtained. Comparison: Previous chest x-ray of 03/15/17. Increasing interstitial change throughout both lungs are seen from prior exam most likely due to worsening pulmonary vascular congestion. Heart does not appear enlarged. No acute bony abnormality is seen. Impression: 1. Increasing interstitial change most likely due to worsening pulmonary vascular congestion. 2. Heart does not appear enlarged and please correlate if patient has had an acute cardiac event. Diagnostic code #3
[2017-03-16] MEDS ORDERED: cefTRIAXone 1 GM in Sodium Chloride 0.9% 100 ML IV SCH (17:00)
[2017-03-16] MEDS: Metoprolol Tartrate 5 MG/5 ML SDV IVPUSH PRN ×2 (17:25→22:26)
[2017-03-17] MEDS: Pantoprazole 40 MG Tab.CR PO SCH (06:30)
[2017-03-17] MEDS: Furosemide 20 MG Tab PO SCH ×2 (06:30→13:37)
[2017-03-17] MEDS: Levothyroxine 112 MCG Tab PO SCH (06:30)
[2017-03-17] MEDS: Multivitamins,Therapeutic Tab PO SCH (06:30)
[2017-03-17] MEDS: Enoxaparin 40 MG/0.4 ML Syringe SUBCUT SCH (08:12)
[2017-03-17] MEDS: Cholecalciferol (Vitamin D3) 1,000 Unit Tab PO SCH (08:12)
[2017-03-17] MEDS: Vitamin B Complex With Vitamin C Cap PO SCH (08:12)
[2017-03-17] MEDS: Calcium Carbonate 600 MG Tab PO SCH (08:12)
[2017-03-17] MEDS: Aspirin 81 MG Tab.EC PO SCH (08:12)
[2017-03-17] MEDS: Potassium Chloride 20 MEQ Tab.ER PO SCH ×3 (10:00→17:08)
[2017-03-17] MEDS: Magnesium Oxide 400 MG Tab PO SCH ×4 (10:01→20:16)
--- NOTE | 2017-03-17 10:03 | PCM.PN ---
- General Info Date of Service: 03/17/17 Functional Status: Reports: Tolerating Diet - Review of Systems General: Reports: Weakness, Malaise HEENT: Reports: No Symptoms Pulmonary: Reports: No Symptoms Cardiovascular: Reports: No Symptoms Gastrointestinal: Reports: No Symptoms Genitourinary: Reports: No Symptoms Musculoskeletal: Reports: No Symptoms Skin: Reports: No Symptoms Neurological: Reports: No Symptoms Psychiatric: Reports: No Symptoms - Patient Data Vitals - Most Recent: Last Vital Signs Temp 37.1 C 03/17/17 07:33 Pulse 98 03/17/17 07:33 Resp 28 H 03/17/17 07:33 BP 100/51 L 03/17/17 07:33 Pulse Ox 92 L 03/17/17 07:33 Weight - Most Recent: 60.645 kg I&O - Last 24 Hours: Intake & Output 03/16/17 03/17/17 03/17/17 22:59 06:59 14:59 Intake Total 320 300 Output Total 600 450 Balance -280 -150 Lab Results Last 24 Hours: Laboratory Results - last 24 hr 03/17/17 03/17/17 Range/Units 06:15 06:15 WBC 10.86 H (3.98-10.04) K/mm3 RBC 3.71 L (3.98-5.22) M/mm3 Hgb 11.0 L (11.2-15.7) gm/L Hct 33.3 L (34.1-44.9) % MCV 89.8 (79.4-94.8) fl MCH 29.6 (25.6-32.2) pg MCHC 33.0 (32.2-35.5) g/dl RDW Std Deviation 49.1 H (36.4-46.3) fL Plt Count 423 H (182-369) K/mm3 MPV 8.8 L (9.4-12.3) fl Neut % (Auto) 80.9 H (34.0-71.1) % Lymph % (Auto) 7.4 L (19.3-51.7) % [place] % (Auto) 6.9 (4.7-12.5) % Eos % (Auto) 3.0 (0.7-5.8) Baso % (Auto) 0.5 (0.1-1.2) % Neut # (Auto) 8.79 H (1.56-6.13) K/mm3 Lymph # (Auto) 0.80 L (1.18-3.74) K/mm3 [place] # (Auto) 0.75 H (0.24-0.36) K/mm3 Eos # (Auto) 0.33 (0.04-0.36) K/mm3 Baso # (Auto) 0.05 (0.01-0.08) K/mm3 Manual Slide Review Abnormal smear Sodium 136 (136-145) mEq/L Potassium 3.2 L (3.5-5.1) mEq/L Chloride 101 (98-107) mEq/L Carbon Dioxide 24 (21-32) mEq/L Anion Gap 14.2 (5-15) BUN 17 (7-18) mg/dL Creatinine 1.0 (0.55-1.02) mg/dL Est Cr Clr Drug Dosing 40.98 mL/min Estimated GFR (MDRD) 54 (>60) mL/min BUN/Creatinine Ratio 17.0 (14-18) Glucose 103 (83-115) mg/dL Calcium 9.0 (8.5-10.1) mg/dL Magnesium 1.8 (1.8-2.4) mg/dl Med Orders - Current: Current Medications Acetaminophen (Tylenol) 650 mg PO Q4H PRN PRN Reason: Pain (Mild 1-3)/fever Hydrocodone Bitart/Acetaminophen ([place] 325-5 Mg) 1 tab PO Q4H PRN PRN Reason: Pain (moderate 4-6) Albuterol/Ipratropium (Duoneb 3.0-0.5 Mg/3 Ml) 3 ml NEB Q4H PRN PRN Reason: Shortness Of Breath/wheezing Last Admin: 03/16/17 21:34 Dose: 3 ml Aspirin (Halfprin) 81 mg PO DAILY [facility] Last Admin: 03/17/17 08:12 Dose: 81 mg Bisacodyl (Dulcolax) 5 mg PO DAILY PRN PRN Reason: Constipation Calcium Carbonate/Glycine (Calcium Carbonate) 600 mg PO DAILY [facility] Last Admin: 03/17/17 08:12 Dose: 600 mg Cholecalciferol (Vitamin D3) 1,000 units PO DAILY [facility] Last Admin: 03/17/17 08:12 Dose: 1,000 units Docusate Sodium (Colace) 100 mg PO BID PRN PRN Reason: Constipation Enoxaparin Sodium (Lovenox) 40 mg SUBCUT DAILY [facility] Last Admin: 03/17/17 08:12 Dose: 40 mg Furosemide (Lasix) 20 mg PO BIDDIURETIC [facility] Last Admin: 03/17/17 06:30 Dose: 20 mg Hydralazine HCl (Apresoline) 10 mg IVPUSH Q4H PRN PRN Reason: Hypertension Hydromorphone HCl (Dilaudid) 0.25 mg IVPUSH Q2H PRN PRN Reason: Pain (severe 7-10) Promethazine HCl 12.5 mg/ (Sodium Chloride) 50.5 mls @ 100 mls/hr IV Q6H PRN PRN Reason: Nausea/Vomiting Ceftriaxone Sodium 1 gm/ (Dextrose/Water) 100 mls @ 200 mls/hr IV Q24H [facility] Levothyroxine Sodium (Levothyroxine) 112 mcg PO ACBRK [facility] Last Admin: 03/17/17 06:30 Dose: 112 mcg Lorazepam (Ativan) 0.5 mg IV Q6H PRN PRN Reason: Anxiety Magnesium Oxide (Magnesium Oxide) 400 mg PO TID [facility] Stop: 03/17/17 21:01 Last Admin: 03/17/17 10:01 Dose: 400 mg Magnesium Sulfate (Pharmacy To Dose - Magnesium Replacement) 1 dose .XX ASDIRECTED [facility] Methotrexate (Methotrexate) 20 mg PO Garcia@0900 [facility] Metoprolol Tartrate (Lopressor) 5 mg IVPUSH Q4H PRN PRN Reason: Tachycardia Last Admin: 03/16/17 22:26 Dose: 5 mg Multivitamins (Thera) 1 each PO WITHBREAKFAST [facility] Last Admin: 03/17/17 06:30 Dose: 1 each Ondansetron HCl (Zofran) 4 mg IV Q6H PRN PRN Reason: Nausea/Vomiting Pantoprazole Sodium (Protonix) 40 mg PO DAILY@0700 [facility] Last Admin: 03/17/17 06:30 Dose: 40 mg Polyethylene Glycol (Miralax) 17 gm PO DAILY PRN PRN Reason: Constipation Potassium Chloride (Pharmacy To Dose - Potassium Replacement) 1 dose .XX ASDIRECTED [facility] Potassium Chloride (Klor-Con M20) 40 meq PO Q4H [facility] Stop: 03/17/17 18:01 Last Admin: 03/17/17 10:00 Dose: 40 meq Prednisone (Prednisone) 10 mg PO We@0800 [facility] Senna/Docusate Sodium (Senna Plus) 1 tab PO BID PRN PRN Reason: Constipation Last Admin: 03/16/17 10:43 Dose: 1 tab Sodium Chloride (Saline Flush) 10 ml FLUSH ASDIRECTED PRN PRN Reason: Keep Vein Open Last Admin: 03/15/17 15:18 Dose: 10 ml Temazepam (Restoril) 7.5 mg PO BEDTIME PRN PRN Reason: Sleep Vitamin B Complex/Vitamin C (Super B With Vitamin C) 1 cap PO DAILY [facility] Last Admin: 03/17/17 08:12 Dose: 1 cap Discontinued Medications Denosumab (Prolia) 60 mg SUBCUT ASDIRECTED [facility] Diphtheria/Tetanus/Acell Pertussis (Adacel) 0.5 ml IM .ONCE ONE Stop: 03/15/17 23:35 Furosemide (Lasix) 40 mg IVPUSH NOW ONE Stop: 03/15/17 14:33 Last Admin: 03/15/17 15:12 Dose: 40 mg Ceftriaxone Sodium 1 gm/ (Sodium Chloride) 100 mls @ 200 mls/hr IV ONETIME ONE Stop: 03/15/17 17:18 Last Admin: 03/15/17 17:05 Dose: 200 mls/hr Magnesium Sulfate (Magnesium Sulfate 2 Gm In Water 50 Ml) 50 mls @ 50 mls/hr IV ONETIME ONE Stop: 03/15/17 23:59 Last Admin: 03/15/17 23:18 Dose: 50 mls/hr Ceftriaxone Sodium 1 gm/ (Sodium Chloride) 100 mls @ 200 mls/hr IV Q24H [facility] Last Admin: 03/16/17 16:32 Dose: 200 mls/hr Non-Formulary Medication (Flaxseed Oil) 1,000 mg PO DAILY [facility] - Exam Quality Assessment: DVT Prophylaxis General: Alert, Oriented, Cooperative, No Acute Distress HEENT: Pupils Equal, Pupils Reactive, EOMI Neck: Supple, Trachea Midline, No JVD Lungs: Normal Respiratory Effort Cardiovascular: Regular Rate GI/Abdominal Exam: Normal Bowel Sounds, Soft, Non-Tender, No Organomegaly, No Distention (Female) Exam: Deferred Back Exam: Normal Inspection Extremities: Normal Inspection Skin: Warm Neurological: No New Focal Deficit Psy/Mental Status: Alert, Normal Affect, Normal Mood - Problem List Review Problem List Initiated/Reviewed/Updated: Yes - Plan Plan:: Assessment/Plan: Acute: Respiratory Distress/Hypoxia - Likely 2/2 CHF and Pulmonary Fibrosis - Supplemental O2; currently at 5L this am - She appears stable - Follow Up CXR shows increasing interstitial change like due to worsening pulmonary vascular congestion - BNP 1216 ---> 821 today - IS and FV as directed CHF with Unknown EF - Mild - ProBNP 1216 --> 821 - CXR shows pulmonary vascular congestion and fibrosis - Continue Heart failure protocol: diuretics, salt/fluid restriction, is/os and daily weight check - 2D echo completed UTI - UA suggestive of UTI - Pos suprapubic tenderness - Risk Factor: Urinary Incontinence - Received IV Rocephin in ED; will continue Abx - UA Cx/Sx- still pending Elevated CRP - 2/2 RA or Auto-immune Disease Chronic: Hx/o PAF; now off xarelto HF with Unknown EF HTN HLD Pulmonary Fibrosis RA Urinary Incontinence: Mixed OA Osteoporosis Hypothyroidism Plan: Repeat CXR, 2 View Check BNP Adjust diuretic as needed. 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
[2017-03-17] MEDS ORDERED: cefTRIAXone 1 GM in Dextrose 5% in Water 100 ML IV SCH ×2 (17:00)
[2017-03-18] MEDS: Furosemide 20 MG Tab PO SCH (06:29)
[2017-03-18] MEDS: Pantoprazole 40 MG Tab.CR PO SCH (06:30)
[2017-03-18] MEDS: Multivitamins,Therapeutic Tab PO SCH (06:30)
[2017-03-18] MEDS: Levothyroxine 112 MCG Tab PO SCH (06:30)
[2017-03-18] MEDS: Enoxaparin 40 MG/0.4 ML Syringe SUBCUT SCH (08:19)
[2017-03-18] MEDS: Aspirin 81 MG Tab.EC PO SCH (08:19)
[2017-03-18] MEDS: Cholecalciferol (Vitamin D3) 1,000 Unit Tab PO SCH (08:19)
[2017-03-18] MEDS: Calcium Carbonate 600 MG Tab PO SCH (08:19)
[2017-03-18] MEDS: Vitamin B Complex With Vitamin C Cap PO SCH (08:19)
[2017-03-18] MEDS ORDERED: Methotrexate 2.5 MG Tab PO SCH (09:00)
[2017-03-18] MEDS: Metoprolol Tartrate 5 MG/5 ML SDV IVPUSH PRN (09:57)
--- NOTE | 2017-03-18 12:08 | PCM.PN ---
- General Info Date of Service: 03/18/17 Functional Status: Reports: Pain Controlled, Tolerating Diet, Ambulating, Urinating - Review of Systems General: Reports: Weakness HEENT: Reports: No Symptoms Pulmonary: Reports: No Symptoms Cardiovascular: Reports: No Symptoms Gastrointestinal: Reports: No Symptoms Genitourinary: Reports: No Symptoms Musculoskeletal: Reports: No Symptoms Skin: Reports: No Symptoms Neurological: Reports: No Symptoms Psychiatric: Reports: No Symptoms - Patient Data Vitals - Most Recent: Last Vital Signs Temp 36.5 C 03/18/17 08:20 Pulse 107 H 03/18/17 10:39 Resp 22 H 03/18/17 08:20 BP 110/56 L 03/18/17 10:39 Pulse Ox 92 L 03/18/17 10:39 Weight - Most Recent: 60.645 kg I&O - Last 24 Hours: Intake & Output 03/17/17 03/18/17 03/18/17 22:59 06:59 14:59 Intake Total 300 500 180 Output Total 400 Balance 300 100 180 Lab Results Last 24 Hours: Laboratory Results - last 24 hr 03/18/17 03/18/17 Range/Units 05:30 05:30 WBC 15.01 H (3.98-10.04) K/mm3 RBC 3.80 L (3.98-5.22) M/mm3 Hgb 11.4 (11.2-15.7) gm/L Hct 34.7 (34.1-44.9) % MCV 91.3 (79.4-94.8) fl MCH 30.0 (25.6-32.2) pg MCHC 32.9 (32.2-35.5) g/dl RDW Std Deviation 50.5 H (36.4-46.3) fL Plt Count 461 H (182-369) K/mm3 MPV 9.0 L (9.4-12.3) fl Neut % (Auto) 79.1 H (34.0-71.1) % Lymph % (Auto) 5.3 L (19.3-51.7) % [place] % (Auto) 10.6 (4.7-12.5) % Eos % (Auto) 3.1 (0.7-5.8) Baso % (Auto) 0.3 (0.1-1.2) % Neut # (Auto) 11.87 H (1.56-6.13) K/mm3 Lymph # (Auto) 0.80 L (1.18-3.74) K/mm3 [place] # (Auto) 1.59 H (0.24-0.36) K/mm3 Eos # (Auto) 0.47 H (0.04-0.36) K/mm3 Baso # (Auto) 0.04 (0.01-0.08) K/mm3 Manual Slide Review Abnormal smear Sodium 136 (136-145) mEq/L Potassium 5.0 (3.5-5.1) mEq/L Chloride 103 (98-107) mEq/L Carbon Dioxide 25 (21-32) mEq/L Anion Gap 13.0 (5-15) BUN 15 (7-18) mg/dL Creatinine 1.0 (0.55-1.02) mg/dL Est Cr Clr Drug Dosing 40.98 mL/min Estimated GFR (MDRD) 54 (>60) mL/min BUN/Creatinine Ratio 15.0 (14-18) Glucose 100 (83-115) mg/dL Calcium 9.5 (8.5-10.1) mg/dL Magnesium 2.0 (1.8-2.4) mg/dl Med Orders - Current: Current Medications Acetaminophen (Tylenol) 650 mg PO Q4H PRN PRN Reason: Pain (Mild 1-3)/fever Hydrocodone Bitart/Acetaminophen ([place] 325-5 Mg) 1 tab PO Q4H PRN PRN Reason: Pain (moderate 4-6) Albuterol/Ipratropium (Duoneb 3.0-0.5 Mg/3 Ml) 3 ml NEB Q4H PRN PRN Reason: Shortness Of Breath/wheezing Last Admin: 03/16/17 21:34 Dose: 3 ml Aspirin (Halfprin) 81 mg PO DAILY [facility] Last Admin: 03/18/17 08:19 Dose: 81 mg Bisacodyl (Dulcolax) 5 mg PO DAILY PRN PRN Reason: Constipation Calcium Carbonate/Glycine (Calcium Carbonate) 600 mg PO DAILY [facility] Last Admin: 03/18/17 08:19 Dose: 600 mg Carvedilol (Coreg) 3.125 mg PO BID [facility] Cholecalciferol (Vitamin D3) 1,000 units PO DAILY [facility] Last Admin: 03/18/17 08:19 Dose: 1,000 units Docusate Sodium (Colace) 100 mg PO BID PRN PRN Reason: Constipation Enoxaparin Sodium (Lovenox) 40 mg SUBCUT DAILY [facility] Last Admin: 03/18/17 08:19 Dose: 40 mg Furosemide (Lasix) 20 mg PO BIDDIURETIC [facility] Last Admin: 03/18/17 06:29 Dose: 20 mg Hydralazine HCl (Apresoline) 10 mg IVPUSH Q4H PRN PRN Reason: Hypertension Hydromorphone HCl (Dilaudid) 0.25 mg IVPUSH Q2H PRN PRN Reason: Pain (severe 7-10) Promethazine HCl 12.5 mg/ (Sodium Chloride) 50.5 mls @ 100 mls/hr IV Q6H PRN PRN Reason: Nausea/Vomiting Ceftriaxone Sodium 1 gm/ (Dextrose/Water) 100 mls @ 200 mls/hr IV Q24H [facility] Last Admin: 03/17/17 16:12 Dose: 200 mls/hr Levothyroxine Sodium (Levothyroxine) 112 mcg PO ACBRK [facility] Last Admin: 03/18/17 06:30 Dose: 112 mcg Lorazepam (Ativan) 0.5 mg IV Q6H PRN PRN Reason: Anxiety Losartan Potassium (Cozaar) 12.5 mg PO BID [facility] Methotrexate (Methotrexate) 20 mg PO Garcia@0900 [facility] Last Admin: 03/18/17 08:20 Dose: 20 mg Metoprolol Tartrate (Lopressor) 5 mg IVPUSH Q4H PRN PRN Reason: Tachycardia Last Admin: 03/18/17 09:57 Dose: 5 mg Multivitamins (Thera) 1 each PO WITHBREAKFAST [facility] Last Admin: 03/18/17 06:30 Dose: 1 each Ondansetron HCl (Zofran) 4 mg IV Q6H PRN PRN Reason: Nausea/Vomiting Pantoprazole Sodium (Protonix) 40 mg PO DAILY@0700 [facility] Last Admin: 03/18/17 06:30 Dose: 40 mg Polyethylene Glycol (Miralax) 17 gm PO DAILY PRN PRN Reason: Constipation Prednisone (Prednisone) 10 mg PO We@0800 [facility] Senna/Docusate Sodium (Senna Plus) 1 tab PO BID PRN PRN Reason: Constipation Last Admin: 03/16/17 10:43 Dose: 1 tab Sodium Chloride (Saline Flush) 10 ml FLUSH ASDIRECTED PRN PRN Reason: Keep Vein Open Last Admin: 03/15/17 15:18 Dose: 10 ml Temazepam (Restoril) 7.5 mg PO BEDTIME PRN PRN Reason: Sleep Vitamin B Complex/Vitamin C (Super B With Vitamin C) 1 cap PO DAILY [facility] Last Admin: 03/18/17 08:19 Dose: 1 cap Discontinued Medications Denosumab (Prolia) 60 mg SUBCUT ASDIRECTED [facility] Diphtheria/Tetanus/Acell Pertussis (Adacel) 0.5 ml IM .ONCE ONE Stop: 03/15/17 23:35 Furosemide (Lasix) 40 mg IVPUSH NOW ONE Stop: 03/15/17 14:33 Last Admin: 03/15/17 15:12 Dose: 40 mg Ceftriaxone Sodium 1 gm/ (Sodium Chloride) 100 mls @ 200 mls/hr IV ONETIME ONE Stop: 03/15/17 17:18 Last Admin: 03/15/17 17:05 Dose: 200 mls/hr Magnesium Sulfate (Magnesium Sulfate 2 Gm In Water 50 Ml) 50 mls @ 50 mls/hr IV ONETIME ONE Stop: 03/15/17 23:59 Last Admin: 03/15/17 23:18 Dose: 50 mls/hr Ceftriaxone Sodium 1 gm/ (Sodium Chloride) 100 mls @ 200 mls/hr IV Q24H [facility] Last Admin: 03/16/17 16:32 Dose: 200 mls/hr Magnesium Oxide (Magnesium Oxide) 400 mg PO TID [facility] Stop: 03/17/17 21:01 Last Admin: 03/17/17 20:16 Dose: 400 mg Magnesium Sulfate (Pharmacy To Dose - Magnesium Replacement) 1 dose .XX ASDIRECTED [facility] Non-Formulary Medication (Flaxseed Oil) 1,000 mg PO DAILY [facility] Potassium Chloride (Pharmacy To Dose - Potassium Replacement) 1 dose .XX ASDIRECTED [facility] Potassium Chloride (Klor-Con M20) 40 meq PO Q4H [facility] Stop: 03/17/17 18:01 Last Admin: 03/17/17 17:08 Dose: 40 meq - Exam Quality Assessment: DVT Prophylaxis General: Alert, Oriented, Cooperative, No Acute Distress HEENT: Pupils Equal, Pupils Reactive, EOMI Neck: Supple, Trachea Midline Lungs: Normal Respiratory Effort Cardiovascular: Regular Rate, Regular Rhythm GI/Abdominal Exam: Normal Bowel Sounds, Soft, Non-Tender, No Organomegaly, No Distention (Female) Exam: Deferred Back Exam: Normal Inspection Extremities: Normal Inspection Skin: Warm Neurological: No New Focal Deficit, Normal Speech Psy/Mental Status: Alert, Normal Affect, Normal Mood - Problem List Review Problem List Initiated/Reviewed/Updated: Yes - My Orders Last 24 Hours: My Active Orders 03/18/17 11:57 EKG Documentation Completion [RC] ROUTINE 03/18/17 12:00 Carvedilol [Coreg] 3.125 mg PO BID 03/18/17 13:00 Losartan [Cozaar] 12.5 mg PO BID 03/19/17 05:00 PRO B-TYPE NATRIUR PEPT,BNPPRO [CHEM] Routine - Plan Plan:: Assessment/Plan: Acute: Respiratory Distress/Hypoxia - Likely 2/2 CHF and Pulmonary Fibrosis - Supplemental O2; currently at 5L this am - She appears stable - Follow Up CXR shows increasing interstitial change like due to worsening pulmonary vascular congestion - BNP 1216 ---> 821 today - IS and FV as directed CHF with Unknown EF - Mild - ProBNP 1216 --> 821 - CXR shows pulmonary vascular congestion and fibrosis - Continue Heart failure protocol: diuretics, salt/fluid restriction, is/os and daily weight check - 2D echo completed UTI - UA suggestive of UTI - Pos suprapubic tenderness - Risk Factor: Urinary Incontinence - Received IV Rocephin in ED; will continue Abx - UA Cx/Sx- still pending Elevated CRP - 2/2 RA or Auto-immune Disease Chronic: Hx/o PAF; now off xarelto HF with Unknown EF HTN HLD Pulmonary Fibrosis RA Urinary Incontinence: Mixed OA Osteoporosis Hypothyroidism Plan: Repeat CXR, 2 View-->03/19/17 Check BNP Adjust diuretic as needed. 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
[2017-03-18] MEDS ORDERED: Furosemide 20 MG/2 ML VIAL IVPUSH ONE (12:09)
[2017-03-18] MEDS: Carvedilol 3.125 MG Tab PO SCH ×2 (12:29→21:16)
[2017-03-18] MEDS ORDERED: Losartan 25 MG Tab PO SCH (13:00)
[2017-03-18] MEDS ORDERED: Levalbuterol HCl 1.25 MG/3 ML Neb ONE (13:09)
[2017-03-18] MEDS ORDERED: Levalbuterol HCl 1.25 MG/3 ML Neb NEB PRN (13:38)
[2017-03-18] MEDS ORDERED: Levofloxacin/Dextrose 5%-Water 750 MG in Premix Bag 1 BAG IV ONE (14:00)
--- NOTE | 2017-03-18 14:08 | CR ---
Chest: Portable view of the chest was obtained. Comparison: Prior chest x-ray of 03/16/17. Interstitial change is noted appears fairly stable from prior study when allowing for differences in technique. Heart size and mediastinum are normal. Bony structures are unchanged. Impression: 1. Stable interstitial change within both lungs when allowing for differences in technique. 2. Other portions of the chest are also stable. Diagnostic code #3
[2017-03-18] MEDS: methylPREDNISolone Sodium Succinate 125 MG/2 ML SDV IVPUSH SCH ×2 (14:21→21:16)
[2017-03-18] MEDS: Levalbuterol HCl 1.25 MG/3 ML Neb NEB PRN (17:36)
[2017-03-19] MEDS: Levalbuterol HCl 1.25 MG/3 ML Neb NEB PRN ×2 (02:30→07:42)
[2017-03-19] MEDS: Pantoprazole 40 MG Tab.CR PO SCH (06:07)
[2017-03-19] MEDS: Levothyroxine 112 MCG Tab PO SCH (06:07)
[2017-03-19] MEDS: methylPREDNISolone Sodium Succinate 125 MG/2 ML SDV IVPUSH SCH (06:07)
[2017-03-19] MEDS: Albuterol/Ipratropium 3.0-0.5 MG/3 ML Neb Soln NEB PRN (07:39)
[2017-03-19] MEDS: Calcium Carbonate 600 MG Tab PO SCH (08:01)
[2017-03-19] MEDS: Aspirin 81 MG Tab.EC PO SCH (08:01)
[2017-03-19] MEDS: Carvedilol 3.125 MG Tab PO SCH ×2 (08:01→21:25)
[2017-03-19] MEDS: Vitamin B Complex With Vitamin C Cap PO SCH (08:01)
[2017-03-19] MEDS: Multivitamins,Therapeutic Tab PO SCH (08:01)
[2017-03-19] MEDS: Enoxaparin 40 MG/0.4 ML Syringe SUBCUT SCH (08:02)
[2017-03-19] MEDS: Cholecalciferol (Vitamin D3) 1,000 Unit Tab PO SCH (08:03)
[2017-03-19] MEDS ORDERED: Furosemide 20 MG/2 ML VIAL IVPUSH ONE (10:40)
--- NOTE | 2017-03-19 11:30 | CR ---
Chest: Two views of the chest were obtained. Comparison: Prior chest x-ray of 03/18/17. Diffuse interstitial change is seen which is stable from prior study. No alveolar type densities are seen. Heart size and mediastinum are normal. Scoliosis is present within the spine. Bony structures are osteopenic. Impression: 1. Stable chest x-ray from prior study. Nothing acute is appreciated. Diagnostic code #3
[2017-03-19] MEDS: Lidocaine 5% 700 MG Patch TOP SCH (12:04)
[2017-03-19] MEDS: Furosemide 20 MG Tab PO SCH ×2 (12:05→13:44)
--- NOTE | 2017-03-19 12:27 | PCM.PN ---
- General Info Date of Service: 03/19/17 Admission Dx/Problem (Free Text): Admission Diagnosis/Problem Admission Diagnosis/Problem Hypoxia Radha is seen this morning resting in chair. She has had CXR and PT this morning and is fatigued and "wore out" from this. Nursing currently has her on simple mask at 6L to keep sats up, she is at 93-94 % on this. She is not coughing. Denies c/o pain to chest or chest wall with breathing or deep breathing. She does have c/o low back pain this morning with movements. Otherwise no other concerns. No nausea today. Voiding without difficulty. Functional Status: Reports: Pain Controlled, Tolerating Diet, Ambulating, Urinating, Incentive Spirometry - Review of Systems General: Reports: Weakness. Denies: Fever HEENT: Reports: No Symptoms Pulmonary: Reports: Shortness of Breath. Denies: Pleuritic Chest Pain, Cough, Wheezing Cardiovascular: Reports: No Symptoms, Dyspnea on Exertion. Denies: Chest Pain, Palpitations Gastrointestinal: Reports: No Symptoms. Denies: Abdominal Pain, Diarrhea, Nausea, Vomiting Genitourinary: Reports: No Symptoms Musculoskeletal: Reports: Back Pain Neurological: Reports: No Symptoms - Patient Data Vitals - Most Recent: Last Vital Signs Temp 97.0 F 03/19/17 11:40 Pulse 96 03/19/17 11:40 Resp 19 03/19/17 11:40 BP 115/63 03/19/17 11:40 Pulse Ox 93 L 03/19/17 11:40 Weight - Most Recent: 130 lb 6.4 oz I&O - Last 24 Hours: Intake & Output 03/18/17 03/19/17 03/19/17 22:59 06:59 14:59 Intake Total 520 400 180 Output Total 600 600 Balance -80 -200 180 Lab Results Last 24 Hours: Laboratory Results - last 24 hr 03/18/17 03/19/17 03/19/17 Range/Units 05:30 06:10 06:10 WBC 14.06 H (3.98-10.04) K/mm3 RBC 3.75 L (3.98-5.22) M/mm3 Hgb 11.2 (11.2-15.7) gm/L Hct 33.9 L (34.1-44.9) % MCV 90.4 (79.4-94.8) fl MCH 29.9 (25.6-32.2) pg MCHC 33.0 (32.2-35.5) g/dl RDW Std Deviation 49.8 H (36.4-46.3) fL Plt Count 576 H (182-369) K/mm3 MPV 9.5 (9.4-12.3) fl Neut % (Auto) 87.1 H (34.0-71.1) % Lymph % (Auto) 8.1 L (19.3-51.7) % [place] % (Auto) 3.7 L (4.7-12.5) % Eos % (Auto) 0 L (0.7-5.8) Baso % (Auto) 0.1 (0.1-1.2) % Neut # (Auto) 12.25 H (1.56-6.13) K/mm3 Lymph # (Auto) 1.14 L (1.18-3.74) K/mm3 [place] # (Auto) 0.52 H (0.24-0.36) K/mm3 Eos # (Auto) 0.00 L (0.04-0.36) K/mm3 Baso # (Auto) 0.01 (0.01-0.08) K/mm3 Manual Slide Review Abnormal smear Sodium (136-145) mEq/L Potassium (3.5-5.1) mEq/L Chloride (98-107) mEq/L Carbon Dioxide (21-32) mEq/L Anion Gap (5-15) BUN (7-18) mg/dL Creatinine (0.55-1.02) mg/dL Est Cr Clr Drug Dosing mL/min Estimated GFR (MDRD) (>60) mL/min BUN/Creatinine Ratio (14-18) Glucose (83-115) mg/dL Calcium (8.5-10.1) mg/dL Magnesium (1.8-2.4) mg/dl NT-Pro-B Natriuret Pep 1072 H (0-450) pg/mL Mycoplasma pneumon IgM Negative (NEGATIVE) 03/19/17 Range/Units 06:10 WBC (3.98-10.04) K/mm3 RBC (3.98-5.22) M/mm3 Hgb (11.2-15.7) gm/L Hct (34.1-44.9) % MCV (79.4-94.8) fl MCH (25.6-32.2) pg MCHC (32.2-35.5) g/dl RDW Std Deviation (36.4-46.3) fL Plt Count (182-369) K/mm3 MPV (9.4-12.3) fl Neut % (Auto) (34.0-71.1) % Lymph % (Auto) (19.3-51.7) % [place] % (Auto) (4.7-12.5) % Eos % (Auto) (0.7-5.8) Baso % (Auto) (0.1-1.2) % Neut # (Auto) (1.56-6.13) K/mm3 Lymph # (Auto) (1.18-3.74) K/mm3 [place] # (Auto) (0.24-0.36) K/mm3 Eos # (Auto) (0.04-0.36) K/mm3 Baso # (Auto) (0.01-0.08) K/mm3 Manual Slide Review Sodium 137 (136-145) mEq/L Potassium 4.6 (3.5-5.1) mEq/L Chloride 103 (98-107) mEq/L Carbon Dioxide 21 (21-32) mEq/L Anion Gap 17.6 H (5-15) BUN 23 H (7-18) mg/dL Creatinine 1.0 (0.55-1.02) mg/dL Est Cr Clr Drug Dosing 40.98 mL/min Estimated GFR (MDRD) 54 (>60) mL/min BUN/Creatinine Ratio 23.0 H (14-18) Glucose 143 H (83-115) mg/dL Calcium 10.0 (8.5-10.1) mg/dL Magnesium 1.9 (1.8-2.4) mg/dl NT-Pro-B Natriuret Pep (0-450) pg/mL Mycoplasma pneumon IgM (NEGATIVE) Juan Results Last 24 Hours: Microbiology 03/18/17 16:00 Influenza Type A Antigen Screen - Final Nasal, Left NEGATIVE INFLUENZA A VIRUS AG Influenza Type B Antigen Screen - Final NEGATIVE INFLUENZA B VIRUS AG Med Orders - Current: Current Medications Acetaminophen (Tylenol) 650 mg PO Q4H PRN PRN Reason: Pain (Mild 1-3)/fever Hydrocodone Bitart/Acetaminophen ([place] 325-5 Mg) 1 tab PO Q4H PRN PRN Reason: Pain (moderate 4-6) Albuterol/Ipratropium (Duoneb 3.0-0.5 Mg/3 Ml) 3 ml NEB Q4H PRN PRN Reason: Shortness Of Breath/wheezing Last Admin: 03/16/17 21:34 Dose: 3 ml Aspirin (Halfprin) 81 mg PO DAILY [facility] Last Admin: 03/19/17 08:01 Dose: 81 mg Bisacodyl (Dulcolax) 5 mg PO DAILY PRN PRN Reason: Constipation Calcium Carbonate/Glycine (Calcium Carbonate) 600 mg PO DAILY [facility] Last Admin: 03/19/17 08:01 Dose: 600 mg Carvedilol (Coreg) 3.125 mg PO BID [facility] Last Admin: 03/19/17 08:01 Dose: 3.125 mg Cholecalciferol (Vitamin D3) 1,000 units PO DAILY [facility] Last Admin: 03/19/17 08:03 Dose: 1,000 units Docusate Sodium (Colace) 100 mg PO BID PRN PRN Reason: Constipation Enoxaparin Sodium (Lovenox) 40 mg SUBCUT DAILY [facility] Last Admin: 03/19/17 08:02 Dose: 40 mg Furosemide (Lasix) 20 mg PO BIDDIURETIC [facility] Stop: 03/19/17 16:00 Last Admin: 03/19/17 12:05 Dose: 20 mg Furosemide (Lasix) 60 mg PO DAILY [facility] Hydralazine HCl (Apresoline) 10 mg IVPUSH Q4H PRN PRN Reason: Hypertension Hydromorphone HCl (Dilaudid) 0.25 mg IVPUSH Q2H PRN PRN Reason: Pain (severe 7-10) Levofloxacin/Dextrose 750 mg/ (Premix) 150 mls @ 100 mls/hr IV Q48H [facility] Levalbuterol HCl (Xopenex) 1.25 mg NEB QID PRN PRN Reason: Shortness of Breath Last Admin: 03/19/17 07:42 Dose: 1.25 mg Levothyroxine Sodium (Levothyroxine) 112 mcg PO ACBRK [facility] Last Admin: 03/19/17 06:07 Dose: 112 mcg Lidocaine (Lidoderm 5%) 700 mg TOP Q24H [facility] Last Admin: 03/19/17 12:04 Dose: 700 mg Lorazepam (Ativan) 0.5 mg IV Q6H PRN PRN Reason: Anxiety Losartan Potassium (Cozaar) 12.5 mg PO BID [facility] Methotrexate (Methotrexate) 20 mg PO Garcia@0900 [facility] Last Admin: 03/18/17 08:20 Dose: 20 mg Methylprednisolone Sodium Succinate (Solu-Medrol) 80 mg IVPUSH Q12H [facility] Metoprolol Tartrate (Lopressor) 5 mg IVPUSH Q4H PRN PRN Reason: Tachycardia Last Admin: 03/18/17 09:57 Dose: 5 mg Miscellaneous Information (Remove Patch) 1 ea TRDERM Q24H [facility] Multivitamins (Thera) 1 each PO WITHBREAKFAST [facility] Last Admin: 03/19/17 08:01 Dose: 1 each Ondansetron HCl (Zofran) 4 mg IV Q6H PRN PRN Reason: Nausea/Vomiting Pantoprazole Sodium (Protonix) 40 mg PO DAILY@0700 [facility] Last Admin: 03/19/17 06:07 Dose: 40 mg Polyethylene Glycol (Miralax) 17 gm PO DAILY PRN PRN Reason: Constipation Senna/Docusate Sodium (Senna Plus) 1 tab PO BID PRN PRN Reason: Constipation Last Admin: 03/16/17 10:43 Dose: 1 tab Sodium Chloride (Saline Flush) 10 ml FLUSH ASDIRECTED PRN PRN Reason: Keep Vein Open Last Admin: 03/15/17 15:18 Dose: 10 ml Temazepam (Restoril) 7.5 mg PO BEDTIME PRN PRN Reason: Sleep Vitamin B Complex/Vitamin C (Super B With Vitamin C) 1 cap PO DAILY [facility] Last Admin: 03/19/17 08:01 Dose: 1 cap Discontinued Medications Denosumab (Prolia) 60 mg SUBCUT ASDIRECTED [facility] Diphtheria/Tetanus/Acell Pertussis (Adacel) 0.5 ml IM .ONCE ONE Stop: 03/15/17 23:35 Furosemide (Lasix) 40 mg IVPUSH NOW ONE Stop: 03/15/17 14:33 Last Admin: 03/15/17 15:12 Dose: 40 mg Furosemide (Lasix) 20 mg PO BIDDIURETIC [facility] Last Admin: 03/18/17 06:29 Dose: 20 mg Furosemide (Lasix) 20 mg IVPUSH NOW ONE Stop: 03/18/17 12:10 Last Admin: 03/18/17 12:29 Dose: 20 mg Furosemide (Lasix) 20 mg IVPUSH NOW ONE Stop: 03/19/17 10:41 Last Admin: 03/19/17 11:22 Dose: 20 mg Ceftriaxone Sodium 1 gm/ (Sodium Chloride) 100 mls @ 200 mls/hr IV ONETIME ONE Stop: 03/15/17 17:18 Last Admin: 03/15/17 17:05 Dose: 200 mls/hr Promethazine HCl 12.5 mg/ (Sodium Chloride) 50.5 mls @ 100 mls/hr IV Q6H PRN PRN Reason: Nausea/Vomiting Magnesium Sulfate (Magnesium Sulfate 2 Gm In Water 50 Ml) 50 mls @ 50 mls/hr IV ONETIME ONE Stop: 03/15/17 23:59 Last Admin: 03/15/17 23:18 Dose: 50 mls/hr Ceftriaxone Sodium 1 gm/ (Sodium Chloride) 100 mls @ 200 mls/hr IV Q24H [facility] Last Admin: 03/16/17 16:32 Dose: 200 mls/hr Ceftriaxone Sodium 1 gm/ (Dextrose/Water) 100 mls @ 200 mls/hr IV Q24H [facility] Last Admin: 03/17/17 16:12 Dose: 200 mls/hr Levofloxacin/Dextrose 750 mg/ (Premix) 150 mls @ 100 mls/hr IV ONETIME ONE Stop: 03/18/17 15:29 Last Admin: 03/18/17 14:20 Dose: 100 mls/hr Levalbuterol HCl (Xopenex) Confirm Administered Dose 1.25 mg .ROUTE .STK-MED ONE Stop: 03/18/17 13:10 Last Admin: 03/18/17 13:14 Dose: 1.25 mg Levalbuterol HCl (Xopenex) 1.25 mg NEB Q6HRRT PRN PRN Reason: Shortness of Breath Losartan Potassium (Cozaar) 12.5 mg PO BID [facility] Magnesium Oxide (Magnesium Oxide) 400 mg PO TID [facility] Stop: 03/17/17 21:01 Last Admin: 03/17/17 20:16 Dose: 400 mg Magnesium Sulfate (Pharmacy To Dose - Magnesium Replacement) 1 dose .XX ASDIRECTED [facility] Methylprednisolone Sodium Succinate (Solu-Medrol) 125 mg IVPUSH Q8H [facility] Last Admin: 03/19/17 06:07 Dose: 125 mg Non-Formulary Medication (Flaxseed Oil) 1,000 mg PO DAILY [facility] Potassium Chloride (Pharmacy To Dose - Potassium Replacement) 1 dose .XX ASDIRECTED [facility] Potassium Chloride (Klor-Con M20) 40 meq PO Q4H [facility] Stop: 03/17/17 18:01 Last Admin: 03/17/17 17:08 Dose: 40 meq Prednisone (Prednisone) 10 mg PO We@0800 [facility] - Exam Quality Assessment: Supplemental Oxygen, DVT Prophylaxis General: Alert, Oriented, Cooperative, No Acute Distress HEENT: Pupils Equal, EOMI, Mucous Membr. Moist/[place] Neck: Supple, No JVD Lungs: Normal Respiratory Effort (at rest; with talking becomes SOB), Decreased Breath Sounds (mid to lower bases), Other (does get mildly SOB with conversation and has to stop to breath while talking. ). No: Crackles, Rhonchi , Wheezing Cardiovascular: Regular Rate, Regular Rhythm GI/Abdominal Exam: Normal Bowel Sounds, Soft, Non-Tender (Female) Exam: Deferred Back Exam: Normal Inspection, Paraspinal Tenderness (lower thoracic and upper lumbar spine). No: Vertebral Tenderness Extremities: Normal Inspection, Pedal Edema (trace bilat ) Neurological: No New Focal Deficit Psy/Mental Status: Alert, Normal Affect, Normal Mood - Problem List & Annotations (1) Hypoxia SNOMED Code(s): 421198382 Code(s): R09.02 - HYPOXEMIA Status: Acute Priority: High Current Visit : Yes (2) Acute exacerbation of CHF (congestive heart failure) SNOMED Code(s): 63141297 Code(s): I50.9 - HEART FAILURE, UNSPECIFIED Status: Acute Priority: High Current Visit: Yes Qualifiers: Congestive heart failure type: diastolic Qualified Code(s): I50.33 - Acute on chronic diastolic (congestive) heart failure (3) Chronic renal insufficiency, stage III (moderate) SNOMED Code(s): 811791884 Code(s): N18.3 - CHRONIC KIDNEY DISEASE, STAGE 3 (MODERATE) Status: Acute Priority: High Current Visit: Yes (4) Rheumatoid arthritis SNOMED Code(s): 98545469 Code(s): M06.9 - RHEUMATOID ARTHRITIS, UNSPECIFIED Status: Chronic Priority: Medium Current Visit: Yes Qualifiers: Rheumatoid arthritis location: multiple sites Rheumatoid factor presence: unspecified presence Qualified Code(s): M06.9 - Rheumatoid arthritis, unspecified - Problem List Review Problem List Initiated/Reviewed/Updated: Yes - My Orders Last 24 Hours: My Active Orders 03/19/17 11:22 Cooling Warming Measures [RC] ASDIRECTED Heat Therapy [OM.PC] Routine 03/19/17 11:30 Lidocaine 5% [Lidoderm 5%] 700 mg TOP Q24H Remove Patch 1 ea TRDERM Q24H 03/20/17 09:00 Furosemide [Lasix] 60 mg PO DAILY 03/20/17 10:45 BASIC METABOLIC PANEL,BMP [CHEM] DAILY CBC WITH AUTO DIFF [HEME] DAILY MAGNESIUM [CHEM] DAILY 03/21/17 10:45 BASIC METABOLIC PANEL,BMP [CHEM] DAILY CBC WITH AUTO DIFF [HEME] DAILY MAGNESIUM [CHEM] DAILY 03/22/17 10:45 BASIC METABOLIC PANEL,BMP [CHEM] DAILY CBC WITH AUTO DIFF [HEME] DAILY MAGNESIUM [CHEM] DAILY - Plan Plan:: Assessment/Plan: Acute: Respiratory Distress/Hypoxia - Likely 2/2 CHF and Pulmonary Fibrosis - Supplemental O2 - Follow Up CXR intial f/up shows increasing interstitial change like due to worsening pulmonary vascular congestion. Repeat CXR today shows improved and stable findings. - Negative flu and mycoplasma screening - Echo - BNP 1216 ---> 821 --> 1072 - IS and FV as directed - IV abx CHF with Unknown EF - Mild - ProBNP 1216 --> 821 - CXR shows pulmonary vascular congestion and fibrosis - Continue Heart failure protocol: diuretics, salt/fluid restriction, is/os and daily weight check - 2D echo completed - Cont to diurese UTI - UA suggestive of UTI--UC with mixed jeri no growth - Pos suprapubic tenderness - Risk Factor: Urinary Incontinence - Received IV Rocephin in ED Elevated CRP - Contributing factor is hx RA/Auto-immune Disease Chronic: Fracture to foot (daughter states "just from walking" and "horrible osteoporosis ") Hx/o PAF; now off xarelto, ASA only HTN- b/p's stable and under good control HLD Pulmonary Fibrosis RA Urinary Incontinence: 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 Add low dose coreg 3.125 mg BID Restart Losartan at low dose- follow renal status [facility] [employer] [facility] for Cognitive eval Routine AM Labs Continue PT/OT/RT DVT PPx: Lovenox SubQ daily SW/CM for d/c planning--Plans for DC to SNF within next 24-48 hours if able to control hypoxia and wean down on O2 flow; discussed with patient and daugher will likely DC on O2 at this time. Ambulate as tolerated- with CAM boot at all times. Code status: CPR only LOS>96 hours, gradual but slower than expected response to therapy
[2017-03-19] MEDS: methylPREDNISolone Sodium Succinate 40 MG/1 ML SDV IVPUSH SCH (17:59)
[2017-03-20] MEDS: Acetaminophen 325 MG Tab PO PRN (03:44)
[2017-03-20] MEDS: Multivitamins,Therapeutic Tab PO SCH (06:19)
[2017-03-20] MEDS: methylPREDNISolone Sodium Succinate 40 MG/1 ML SDV IVPUSH SCH ×2 (06:19→17:19)
[2017-03-20] MEDS: Pantoprazole 40 MG Tab.CR PO SCH (06:19)
[2017-03-20] MEDS: Levothyroxine 112 MCG Tab PO SCH (06:19)
--- NOTE | 2017-03-20 06:55 | PCM.PN ---
- General Info Date of Service: 03/20/17 Admission Dx/Problem (Free Text): Admission Diagnosis/Problem Admission Diagnosis/Problem Hypoxia Hellen is seen this morning resting in chair, daughter is present in room with her. She is not coughing. Denies c/o pain to chest or chest wall with breathing or deep breathing. No nausea today. Voiding without difficulty and moving bowels. Continues on 5-6L/supplemental oxygen. Repeat CXR done yesterday was stable and with diffuse interstital changes. Thus far all screenings have been normal including mycoplasma, strep pneumonia, flu a/b screen, Blood cultures and urine culture. Echocardiogram is obtained with EF of 60-65% no valvular concerns. Functional Status: Reports: Pain Controlled, Tolerating Diet, Ambulating, Urinating, Incentive Spirometry. Denies: New Symptoms - Review of Systems General: Reports: Fatigue. Denies: Fever HEENT: Reports: No Symptoms Pulmonary: Reports: Shortness of Breath, Cough (minimal to none). Denies: Hemoptysis, Wheezing Cardiovascular: Reports: No Symptoms. Denies: Chest Pain, Palpitations Gastrointestinal: Reports: No Symptoms Musculoskeletal: Reports: Back Pain (chronic) Neurological: Reports: Confusion (memory difficulty) - Patient Data Vitals - Most Recent: Last Vital Signs Temp 97.9 F 03/20/17 03:09 Pulse 95 03/20/17 03:09 Resp 20 03/20/17 03:09 BP 134/63 03/20/17 03:09 Pulse Ox 94 L 03/20/17 03:09 Weight - Most Recent: 128 lb I&O - Last 24 Hours: Intake & Output 03/19/17 03/19/17 03/20/17 14:59 22:59 06:59 Intake Total 079 466 7788 Output Total 400 1650 Balance 180 190 -50 Lab Results Last 24 Hours: Laboratory Results - last 24 hr 03/19/17 03/19/17 03/19/17 Range/Units 06:10 06:10 06:10 WBC 14.06 H (3.98-10.04) K/mm3 RBC 3.75 L (3.98-5.22) M/mm3 Hgb 11.2 (11.2-15.7) gm/L Hct 33.9 L (34.1-44.9) % MCV 90.4 (79.4-94.8) fl MCH 29.9 (25.6-32.2) pg MCHC 33.0 (32.2-35.5) g/dl RDW Std Deviation 49.8 H (36.4-46.3) fL Plt Count 576 H (182-369) K/mm3 MPV 9.5 (9.4-12.3) fl Neut % (Auto) 87.1 H (34.0-71.1) % Lymph % (Auto) 8.1 L (19.3-51.7) % [place] % (Auto) 3.7 L (4.7-12.5) % Eos % (Auto) 0 L (0.7-5.8) Baso % (Auto) 0.1 (0.1-1.2) % Neut # (Auto) 12.25 H (1.56-6.13) K/mm3 Lymph # (Auto) 1.14 L (1.18-3.74) K/mm3 [place] # (Auto) 0.52 H (0.24-0.36) K/mm3 Eos # (Auto) 0.00 L (0.04-0.36) K/mm3 Baso # (Auto) 0.01 (0.01-0.08) K/mm3 Manual Slide Review Abnormal smear Sodium 137 (136-145) mEq/L Potassium 4.6 (3.5-5.1) mEq/L Chloride 103 (98-107) mEq/L Carbon Dioxide 21 (21-32) mEq/L Anion Gap 17.6 H (5-15) BUN 23 H (7-18) mg/dL Creatinine 1.0 (0.55-1.02) mg/dL Est Cr Clr Drug Dosing 40.98 mL/min Estimated GFR (MDRD) 54 (>60) mL/min BUN/Creatinine Ratio 23.0 H (14-18) Glucose 143 H (83-115) mg/dL Calcium 10.0 (8.5-10.1) mg/dL Magnesium 1.9 (1.8-2.4) mg/dl NT-Pro-B Natriuret Pep 1072 H (0-450) pg/mL Juan Results Last 24 Hours: Microbiology 03/18/17 21:20 Streptococcus pneumoniae Antigen (M - Final Urine - Clean Catch Midstream 03/18/17 14:33 Aerobic Blood Culture - Preliminary Blood - Venous - Lab Draw NO GROWTH AFTER 1 DAY Anaerobic Blood Culture - Preliminary NO GROWTH AFTER 1 DAY 03/18/17 13:55 Aerobic Blood Culture - Preliminary Blood - Venous NO GROWTH AFTER 1 DAY Anaerobic Blood Culture - Preliminary NO GROWTH AFTER 1 DAY Med Orders - Current: Current Medications Acetaminophen (Tylenol) 650 mg PO Q4H PRN PRN Reason: Pain (Mild 1-3)/fever Last Admin: 03/20/17 03:44 Dose: 650 mg Hydrocodone Bitart/Acetaminophen ([place] 325-5 Mg) 1 tab PO Q4H PRN PRN Reason: Pain (moderate 4-6) Albuterol/Ipratropium (Duoneb 3.0-0.5 Mg/3 Ml) 3 ml NEB Q4H PRN PRN Reason: Shortness Of Breath/wheezing Last Admin: 03/16/17 21:34 Dose: 3 ml Aspirin (Halfprin) 81 mg PO DAILY [facility] Last Admin: 03/19/17 08:01 Dose: 81 mg Bisacodyl (Dulcolax) 5 mg PO DAILY PRN PRN Reason: Constipation Calcium Carbonate/Glycine (Calcium Carbonate) 600 mg PO DAILY [facility] Last Admin: 03/19/17 08:01 Dose: 600 mg Carvedilol (Coreg) 3.125 mg PO BID [facility] Last Admin: 03/19/17 21:25 Dose: 3.125 mg Cholecalciferol (Vitamin D3) 1,000 units PO DAILY [facility] Last Admin: 03/19/17 08:03 Dose: 1,000 units Docusate Sodium (Colace) 100 mg PO BID PRN PRN Reason: Constipation Enoxaparin Sodium (Lovenox) 40 mg SUBCUT DAILY [facility] Last Admin: 03/19/17 08:02 Dose: 40 mg Furosemide (Lasix) 60 mg PO DAILY [facility] Hydralazine HCl (Apresoline) 10 mg IVPUSH Q4H PRN PRN Reason: Hypertension Hydromorphone HCl (Dilaudid) 0.25 mg IVPUSH Q2H PRN PRN Reason: Pain (severe 7-10) Levofloxacin/Dextrose 750 mg/ (Premix) 150 mls @ 100 mls/hr IV Q48H [facility] Levalbuterol HCl (Xopenex) 1.25 mg NEB QID PRN PRN Reason: Shortness of Breath Last Admin: 03/19/17 07:42 Dose: 1.25 mg Levothyroxine Sodium (Levothyroxine) 112 mcg PO ACBRK [facility] Last Admin: 03/20/17 06:19 Dose: 112 mcg Lidocaine (Lidoderm 5%) 700 mg TOP Q24H [facility] Last Admin: 03/19/17 12:04 Dose: 700 mg Lorazepam (Ativan) 0.5 mg IV Q6H PRN PRN Reason: Anxiety Losartan Potassium (Cozaar) 12.5 mg PO BID [facility] Methotrexate (Methotrexate) 20 mg PO Garcia@0900 [facility] Last Admin: 03/18/17 08:20 Dose: 20 mg Methylprednisolone Sodium Succinate (Solu-Medrol) 80 mg IVPUSH Q12H [facility] Last Admin: 03/20/17 06:19 Dose: 80 mg Metoprolol Tartrate (Lopressor) 5 mg IVPUSH Q4H PRN PRN Reason: Tachycardia Last Admin: 03/18/17 09:57 Dose: 5 mg Miscellaneous Information (Remove Patch) 1 ea TRDERM Q24H [facility] Last Admin: 03/19/17 12:34 Dose: Not Given Multivitamins (Thera) 1 each PO WITHBREAKFAST [facility] Last Admin: 03/20/17 06:19 Dose: 1 each Ondansetron HCl (Zofran) 4 mg IV Q6H PRN PRN Reason: Nausea/Vomiting Pantoprazole Sodium (Protonix) 40 mg PO DAILY@0700 [facility] Last Admin: 03/20/17 06:19 Dose: 40 mg Polyethylene Glycol (Miralax) 17 gm PO DAILY PRN PRN Reason: Constipation Senna/Docusate Sodium (Senna Plus) 1 tab PO BID PRN PRN Reason: Constipation Last Admin: 03/16/17 10:43 Dose: 1 tab Sodium Chloride (Saline Flush) 10 ml FLUSH ASDIRECTED PRN PRN Reason: Keep Vein Open Last Admin: 03/15/17 15:18 Dose: 10 ml Temazepam (Restoril) 7.5 mg PO BEDTIME PRN PRN Reason: Sleep Vitamin B Complex/Vitamin C (Super B With Vitamin C) 1 cap PO DAILY [facility] Last Admin: 03/19/17 08:01 Dose: 1 cap Discontinued Medications Denosumab (Prolia) 60 mg SUBCUT ASDIRECTED [facility] Diphtheria/Tetanus/Acell Pertussis (Adacel) 0.5 ml IM .ONCE ONE Stop: 03/15/17 23:35 Furosemide (Lasix) 40 mg IVPUSH NOW ONE Stop: 03/15/17 14:33 Last Admin: 03/15/17 15:12 Dose: 40 mg Furosemide (Lasix) 20 mg PO BIDDIURETIC LADI Last Admin: 03/18/17 06:29 Dose: 20 mg Furosemide (Lasix) 20 mg IVPUSH NOW ONE Stop: 03/18/17 12:10 Last Admin: 03/18/17 12:29 Dose: 20 mg Furosemide (Lasix) 20 mg PO BIDDIURETIC LADI Stop: 03/19/17 16:00 Last Admin: 03/19/17 13:44 Dose: 20 mg Furosemide (Lasix) 20 mg IVPUSH NOW ONE Stop: 03/19/17 10:41 Last Admin: 03/19/17 11:22 Dose: 20 mg Ceftriaxone Sodium 1 gm/ (Sodium Chloride) 100 mls @ 200 mls/hr IV ONETIME ONE Stop: 03/15/17 17:18 Last Admin: 03/15/17 17:05 Dose: 200 mls/hr Promethazine HCl 12.5 mg/ (Sodium Chloride) 50.5 mls @ 100 mls/hr IV Q6H PRN PRN Reason: Nausea/Vomiting Magnesium Sulfate (Magnesium Sulfate 2 Gm In Water 50 Ml) 50 mls @ 50 mls/hr IV ONETIME ONE Stop: 03/15/17 23:59 Last Admin: 03/15/17 23:18 Dose: 50 mls/hr Ceftriaxone Sodium 1 gm/ (Sodium Chloride) 100 mls @ 200 mls/hr IV Q24H [facility] Last Admin: 03/16/17 16:32 Dose: 200 mls/hr Ceftriaxone Sodium 1 gm/ (Dextrose/Water) 100 mls @ 200 mls/hr IV Q24H [facility] Last Admin: 03/17/17 16:12 Dose: 200 mls/hr Levofloxacin/Dextrose 750 mg/ (Premix) 150 mls @ 100 mls/hr IV ONETIME ONE Stop: 03/18/17 15:29 Last Admin: 03/18/17 14:20 Dose: 100 mls/hr Levalbuterol HCl (Xopenex) Confirm Administered Dose 1.25 mg .ROUTE .STK-MED ONE Stop: 03/18/17 13:10 Last Admin: 03/18/17 13:14 Dose: 1.25 mg Levalbuterol HCl (Xopenex) 1.25 mg NEB Q6HRRT PRN PRN Reason: Shortness of Breath Losartan Potassium (Cozaar) 12.5 mg PO BID [facility] Magnesium Oxide (Magnesium Oxide) 400 mg PO TID [facility] Stop: 03/17/17 21:01 Last Admin: 03/17/17 20:16 Dose: 400 mg Magnesium Sulfate (Pharmacy To Dose - Magnesium Replacement) 1 dose .XX ASDIRECTED [facility] Methylprednisolone Sodium Succinate (Solu-Medrol) 125 mg IVPUSH Q8H [facility] Last Admin: 03/19/17 06:07 Dose: 125 mg Non-Formulary Medication (Flaxseed Oil) 1,000 mg PO DAILY [facility] Potassium Chloride (Pharmacy To Dose - Potassium Replacement) 1 dose .XX ASDIRECTED [facility] Potassium Chloride (Klor-Con M20) 40 meq PO Q4H [facility] Stop: 03/17/17 18:01 Last Admin: 03/17/17 17:08 Dose: 40 meq Prednisone (Prednisone) 10 mg PO We@0800 [facility] - Exam Quality Assessment: Supplemental Oxygen, DVT Prophylaxis General: Alert, Oriented, Cooperative, No Acute Distress HEENT: Pupils Equal, EOMI, Mucous Membr. Moist/[place] Neck: Supple Lungs: Normal Respiratory Effort (if talking effort is increased with pauses in between words; unable to finish sentence without a break for deep breathing. ), Decreased Breath Sounds (bases) Cardiovascular: Regular Rate, Regular Rhythm GI/Abdominal Exam: Normal Bowel Sounds, Soft, Non-Tender (Female) Exam: Deferred Extremities: No Pedal Edema, Normal Capillary Refill Peripheral Pulses: 2+: Dorsalis Pedis (L), Dorsalis Pedis (R) Neurological: No New Focal Deficit, Other (short term memory difficulties) Psy/Mental Status: Alert, Normal Affect, Normal Mood - Problem List & Annotations (1) Hypoxia SNOMED Code(s): 049790383 Code(s): R09.02 - HYPOXEMIA Status: Acute Priority: High Current Visit : Yes (2) Acute exacerbation of CHF (congestive heart failure) SNOMED Code(s): 13581747 Code(s): I50.9 - HEART FAILURE, UNSPECIFIED Status: Acute Priority: High Current Visit: Yes Qualifiers: Congestive heart failure type: diastolic Qualified Code(s): I50.33 - Acute on chronic diastolic (congestive) heart failure (3) Chronic renal insufficiency, stage III (moderate) SNOMED Code(s): 310668542 Code(s): N18.3 - CHRONIC KIDNEY DISEASE, STAGE 3 (MODERATE) Status: Acute Priority: High Current Visit: Yes (4) Rheumatoid arthritis SNOMED Code(s): 64231755 Code(s): M06.9 - RHEUMATOID ARTHRITIS, UNSPECIFIED Status: Chronic Priority: Medium Current Visit: Yes Qualifiers: Rheumatoid arthritis location: multiple sites Rheumatoid factor presence: unspecified presence Qualified Code(s): M06.9 - Rheumatoid arthritis, unspecified - Problem List Review Problem List Initiated/Reviewed/Updated: Yes - My Orders Last 24 Hours: My Active Orders 03/19/17 11:22 Heat Therapy [OM.PC] Routine 03/19/17 11:30 Lidocaine 5% [Lidoderm 5%] 700 mg TOP Q24H Remove Patch 1 ea TRDERM Q24H 03/20/17 09:00 Furosemide [Lasix] 60 mg PO DAILY 03/20/17 10:45 BASIC METABOLIC PANEL,BMP [CHEM] DAILY CBC WITH AUTO DIFF [HEME] DAILY MAGNESIUM [CHEM] DAILY 03/21/17 10:45 BASIC METABOLIC PANEL,BMP [CHEM] DAILY CBC WITH AUTO DIFF [HEME] DAILY MAGNESIUM [CHEM] DAILY 03/22/17 10:45 BASIC METABOLIC PANEL,BMP [CHEM] DAILY CBC WITH AUTO DIFF [HEME] DAILY MAGNESIUM [CHEM] DAILY - Plan Plan:: Assessment/Plan: Acute: Respiratory Distress/Hypoxia - Likely 2/2 CHF and Pulmonary Fibrosis - Supplemental O2 - Follow Up CXR intial f/up shows increasing interstitial change like due to worsening pulmonary vascular congestion. Repeat CXR shows improved and stable findings of diffuse interstitial changes -Will obtain CT of chest without contrast for further definition and ? pulmonary fibrosis - Negative flu, Strep pneumonia and mycoplasma screening. Negative blood cultures. - Echo with EF of 60-65% no valvular concerns. - BNP 1216 ---> 821 --> 1072 - IS and FV as directed - IV abx -- has had levaquin IV x 5 days- will DC this and place on PO doxycycline BID also for antiinflammatory purposes with RA hx, florastor. CHF --echo with EF of 60-65% as above - Continue Heart failure protocol: diuretics, salt/fluid restriction, is/os and daily weight check - Cont to diurese; home dose of lasix is 60mg PO Qam; will add spironolactone 25mg daily Elevated CRP - Contributing factor is hx RA/Auto-immune Disease Resolved: UTI - UA suggestive of UTI--UC with mixed jeri no growth-- no need for further abx. - Pos suprapubic tenderness - Risk Factor: Urinary Incontinence - Received IV Rocephin in ED Chronic: Fracture to foot (daughter states "just from walking" and "horrible osteoporosis ") Hx/o PAF; now off xarelto, ASA only HTN- b/p's stable and under good control HLD Pulmonary Fibrosis--? not formally diagnosed. RA- chronic MTX tx--hold MTX while in hospital/ill. 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 Add low dose coreg 3.125 mg BID Restart Losartan at low dose- follow renal status [employer] for Cognitive eval Routine AM Labs Continue PT/OT/RT DVT PPx: Lovenox SubQ daily SW/CM for d/c planning--Plans for DC to SNF within next 24-48 hours if able to control hypoxia and wean down on O2 flow; discussed with patient and daugher will likely DC on O2 at this time. Ambulate as tolerated- with CAM boot at all times. Code status: CPR only LOS>96 hours, gradual but slower than expected response to therapy
[2017-03-20] MEDS: Carvedilol 3.125 MG Tab PO SCH ×2 (08:43→20:32)
[2017-03-20] MEDS: Cholecalciferol (Vitamin D3) 1,000 Unit Tab PO SCH (08:46)
[2017-03-20] MEDS: Furosemide 20 MG Tab PO SCH (08:47)
[2017-03-20] MEDS: Calcium Carbonate 600 MG Tab PO SCH (08:47)
[2017-03-20] MEDS: Aspirin 81 MG Tab.EC PO SCH (08:48)
[2017-03-20] MEDS: Vitamin B Complex With Vitamin C Cap PO SCH (08:48)
[2017-03-20] MEDS: Enoxaparin 40 MG/0.4 ML Syringe SUBCUT SCH (08:49)
[2017-03-20] MEDS: Losartan 25 MG Tab PO SCH ×2 (08:49→20:33)
[2017-03-20] MEDS: Lidocaine 5% 700 MG Patch TOP SCH (10:36)
[2017-03-20] MEDS: Levalbuterol HCl 1.25 MG/3 ML Neb NEB PRN (12:16)
[2017-03-20] MEDS: Doxycycline 100 MG Cap PO SCH ×2 (12:47→20:35)
[2017-03-20] MEDS ORDERED: Levofloxacin/Dextrose 5%-Water 750 MG in Premix Bag 1 BAG IV SCH (14:00)
--- NOTE | 2017-03-20 14:26 | CT ---
CT chest Technique: Multiple axials sections through the chest are obtained. Intravenous contrast was not utilized. Comparison: Prior chest x-ray of 03/19/17. Emphysematous changes are seen. Interstitial change is noted compatible with fibrosis. No acute pulmonary densities are believed to be present. No pleural effusions are seen. Extensive coronary artery calcification is noted. Atherosclerotic change is noted within the thoracic aorta. Ascending aorta slightly ectatic at 3.3 cm. Small portion of the visualized upper abdominal structures are within normal limits. Bone window settings were reviewed which shows slight degenerative change within the spine. Impression: 1. Emphysematous change. Interstitial change compatible with fibrosis. 2. Other incidental findings. Diagnostic code #3
[2017-03-21] MEDS: Levothyroxine 112 MCG Tab PO SCH (06:18)
[2017-03-21] MEDS: Pantoprazole 40 MG Tab.CR PO SCH (06:19)
[2017-03-21] MEDS: Multivitamins,Therapeutic Tab PO SCH (06:19)
[2017-03-21] MEDS: methylPREDNISolone Sodium Succinate 40 MG/1 ML SDV IVPUSH SCH ×2 (06:19→17:08)
[2017-03-21] MEDS ORDERED: predniSONE 10 MG Tab PO SCH (08:00)
--- NOTE | 2017-03-21 08:30 | PCM.PN ---
- General Info Date of Service: 03/21/17 Admission Dx/Problem (Free Text): Admission Diagnosis/Problem Admission Diagnosis/Problem Hypoxia Hellen is seen this morning resting in chair, eating breakfast. She is not coughing. Denies c/o pain to chest or chest wall with breathing or deep breathing. No nausea today. Voiding without difficulty and moving bowels. Feels "pretty good" this morning. No concerns, slept well. Functional Status: Reports: Pain Controlled, Tolerating Diet, Ambulating, Urinating, Incentive Spirometry - Review of Systems General: Reports: Weakness, Fatigue. Denies: Fever HEENT: Reports: No Symptoms Pulmonary: Reports: Shortness of Breath, Cough (minimal) Cardiovascular: Reports: Dyspnea on Exertion Gastrointestinal: Reports: No Symptoms Genitourinary: Reports: No Symptoms Musculoskeletal: Reports: No Symptoms Skin: Reports: No Symptoms Neurological: Reports: No Symptoms Psychiatric: Reports: No Symptoms - Patient Data Vitals - Most Recent: Last Vital Signs Temp 97.3 F 03/21/17 02:55 Pulse 92 03/21/17 02:55 Resp 16 03/21/17 02:55 BP 130/88 03/21/17 02:55 Pulse Ox 98 03/21/17 02:55 Weight - Most Recent: 129 lb 11.2 oz I&O - Last 24 Hours: Intake & Output 03/20/17 03/21/17 03/21/17 22:59 06:59 14:59 Intake Total 700 400 Output Total 750 700 Balance -50 -300 Lab Results Last 24 Hours: Laboratory Results - last 24 hr 03/20/17 03/20/17 03/20/17 Range/Units 10:45 10:45 10:45 WBC 17.32 H (3.98-10.04) K/mm3 RBC 4.02 (3.98-5.22) M/mm3 Hgb 12.0 (11.2-15.7) gm/L Hct 36.1 (34.1-44.9) % MCV 89.8 (79.4-94.8) fl MCH 29.9 (25.6-32.2) pg MCHC 33.2 (32.2-35.5) g/dl RDW Std Deviation 50.6 H (36.4-46.3) fL Plt Count 818 H (182-369) K/mm3 MPV 9.2 L (9.4-12.3) fl Neut % (Auto) 93.1 H (34.0-71.1) % Lymph % (Auto) 4.4 L (19.3-51.7) % Ford % (Auto) 1.8 L (4.7-12.5) % Eos % (Auto) 0 L (0.7-5.8) Baso % (Auto) 0.1 (0.1-1.2) % Neut # (Auto) 16.13 H (1.56-6.13) K/mm3 Lymph # (Auto) 0.76 L (1.18-3.74) K/mm3 Ford # (Auto) 0.32 (0.24-0.36) K/mm3 Eos # (Auto) 0.00 L (0.04-0.36) K/mm3 Baso # (Auto) 0.01 (0.01-0.08) K/mm3 Manual Slide Review Abnormal smear Sodium 138 (136-145) mEq/L Potassium 3.8 (3.5-5.1) mEq/L Chloride 103 (98-107) mEq/L Carbon Dioxide 24 (21-32) mEq/L Anion Gap 14.8 (5-15) BUN 43 H (7-18) mg/dL Creatinine 1.3 H (0.55-1.02) mg/dL Est Cr Clr Drug Dosing 31.52 mL/min Estimated GFR (MDRD) 40 (>60) mL/min BUN/Creatinine Ratio 33.1 H (14-18) Glucose 187 H (83-115) mg/dL Calcium 10.4 H (8.5-10.1) mg/dL Magnesium 2.2 (1.8-2.4) mg/dl C-Reactive Protein 8.4 H* (<1.0) mg/dL TSH 3rd Generation (0.358-3.74) uIU/mL 03/20/17 Range/Units 10:45 WBC (3.98-10.04) K/mm3 RBC (3.98-5.22) M/mm3 Hgb (11.2-15.7) gm/L Hct (34.1-44.9) % MCV (79.4-94.8) fl MCH (25.6-32.2) pg MCHC (32.2-35.5) g/dl RDW Std Deviation (36.4-46.3) fL Plt Count (182-369) K/mm3 MPV (9.4-12.3) fl Neut % (Auto) (34.0-71.1) % Lymph % (Auto) (19.3-51.7) % Ford % (Auto) (4.7-12.5) % Eos % (Auto) (0.7-5.8) Baso % (Auto) (0.1-1.2) % Neut # (Auto) (1.56-6.13) K/mm3 Lymph # (Auto) (1.18-3.74) K/mm3 Ford # (Auto) (0.24-0.36) K/mm3 Eos # (Auto) (0.04-0.36) K/mm3 Baso # (Auto) (0.01-0.08) K/mm3 Manual Slide Review Sodium (136-145) mEq/L Potassium (3.5-5.1) mEq/L Chloride (98-107) mEq/L Carbon Dioxide (21-32) mEq/L Anion Gap (5-15) BUN (7-18) mg/dL Creatinine (0.55-1.02) mg/dL Est Cr Clr Drug Dosing mL/min Estimated GFR (MDRD) (>60) mL/min BUN/Creatinine Ratio (14-18) Glucose (83-115) mg/dL Calcium (8.5-10.1) mg/dL Magnesium (1.8-2.4) mg/dl C-Reactive Protein (<1.0) mg/dL TSH 3rd Generation 0.448 (0.358-3.74) uIU/mL Juan Results Last 24 Hours: Microbiology 03/18/17 14:33 Aerobic Blood Culture - Preliminary Blood - Venous - Lab Draw NO GROWTH AFTER 2 DAYS Anaerobic Blood Culture - Preliminary NO GROWTH AFTER 2 DAYS 03/18/17 13:55 Aerobic Blood Culture - Preliminary Blood - Venous NO GROWTH AFTER 2 DAYS Anaerobic Blood Culture - Preliminary NO GROWTH AFTER 2 DAYS 03/18/17 16:50 Urine Culture - Final Urine, Clean Catch MIXED JERI SUGGESTIVE OF CONTAMINATION. Med Orders - Current: Current Medications Acetaminophen (Tylenol) 650 mg PO Q4H PRN PRN Reason: Pain (Mild 1-3)/fever Last Admin: 03/20/17 03:44 Dose: 650 mg Hydrocodone Bitart/Acetaminophen ([place] 325-5 Mg) 1 tab PO Q4H PRN PRN Reason: Pain (moderate 4-6) Albuterol/Ipratropium (Duoneb 3.0-0.5 Mg/3 Ml) 3 ml NEB Q4H PRN PRN Reason: Shortness Of Breath/wheezing Last Admin: 03/16/17 21:34 Dose: 3 ml Aspirin (Halfprin) 81 mg PO DAILY [facility] Last Admin: 03/20/17 08:48 Dose: 81 mg Bisacodyl (Dulcolax) 5 mg PO DAILY PRN PRN Reason: Constipation Calcium Carbonate/Glycine (Calcium Carbonate) 600 mg PO DAILY [facility] Last Admin: 03/20/17 08:47 Dose: 600 mg Carvedilol (Coreg) 3.125 mg PO BID [facility] Last Admin: 03/20/17 20:32 Dose: 3.125 mg Cholecalciferol (Vitamin D3) 1,000 units PO DAILY [facility] Last Admin: 03/20/17 08:46 Dose: 1,000 units Docusate Sodium (Colace) 100 mg PO BID PRN PRN Reason: Constipation Doxycycline Hyclate (Vibramycin) 100 mg PO BID [facility] Last Admin: 03/20/17 20:35 Dose: 100 mg Enoxaparin Sodium (Lovenox) 40 mg SUBCUT DAILY [facility] Last Admin: 03/20/17 08:49 Dose: 40 mg Furosemide (Lasix) 60 mg PO DAILY [facility] Last Admin: 03/20/17 08:47 Dose: 60 mg Hydralazine HCl (Apresoline) 10 mg IVPUSH Q4H PRN PRN Reason: Hypertension Hydromorphone HCl (Dilaudid) 0.25 mg IVPUSH Q2H PRN PRN Reason: Pain (severe 7-10) Levalbuterol HCl (Xopenex) 1.25 mg NEB QID PRN PRN Reason: Shortness of Breath Last Admin: 03/20/17 12:16 Dose: 1.25 mg Levothyroxine Sodium (Levothyroxine) 112 mcg PO ACBRK [facility] Last Admin: 03/21/17 06:18 Dose: 112 mcg Lidocaine (Lidoderm 5%) 700 mg TOP Q24H [facility] Last Admin: 03/20/17 10:36 Dose: 700 mg Lorazepam (Ativan) 0.5 mg IV Q6H PRN PRN Reason: Anxiety Losartan Potassium (Cozaar) 12.5 mg PO BID [facility] Last Admin: 03/20/17 20:33 Dose: 12.5 mg Methylprednisolone Sodium Succinate (Solu-Medrol) 80 mg IVPUSH Q12H [facility] Last Admin: 03/21/17 06:19 Dose: 80 mg Metoprolol Tartrate (Lopressor) 5 mg IVPUSH Q4H PRN PRN Reason: Tachycardia Last Admin: 03/18/17 09:57 Dose: 5 mg Miscellaneous Information (Remove Patch) 1 ea TRDERM Q24H [facility] Last Admin: 03/20/17 12:47 Dose: 1 ea Multivitamins (Thera) 1 each PO WITHBREAKFAST [facility] Last Admin: 03/21/17 06:19 Dose: 1 each Ondansetron HCl (Zofran) 4 mg IV Q6H PRN PRN Reason: Nausea/Vomiting Pantoprazole Sodium (Protonix) 40 mg PO DAILY@0700 [facility] Last Admin: 03/21/17 06:19 Dose: 40 mg Polyethylene Glycol (Miralax) 17 gm PO DAILY PRN PRN Reason: Constipation Senna/Docusate Sodium (Senna Plus) 1 tab PO BID PRN PRN Reason: Constipation Last Admin: 03/16/17 10:43 Dose: 1 tab Sodium Chloride (Saline Flush) 10 ml FLUSH ASDIRECTED PRN PRN Reason: Keep Vein Open Last Admin: 03/15/17 15:18 Dose: 10 ml Temazepam (Restoril) 7.5 mg PO BEDTIME PRN PRN Reason: Sleep Vitamin B Complex/Vitamin C (Super B With Vitamin C) 1 cap PO DAILY [facility] Last Admin: 03/20/17 08:48 Dose: 1 cap Discontinued Medications Denosumab (Prolia) 60 mg SUBCUT ASDIRECTED [facility] Diphtheria/Tetanus/Acell Pertussis (Adacel) 0.5 ml IM .ONCE ONE Stop: 03/15/17 23:35 Furosemide (Lasix) 40 mg IVPUSH NOW ONE Stop: 03/15/17 14:33 Last Admin: 03/15/17 15:12 Dose: 40 mg Furosemide (Lasix) 20 mg PO BIDDIURETIC LADI Last Admin: 03/18/17 06:29 Dose: 20 mg Furosemide (Lasix) 20 mg IVPUSH NOW ONE Stop: 03/18/17 12:10 Last Admin: 03/18/17 12:29 Dose: 20 mg Furosemide (Lasix) 20 mg PO BIDDIURETIC LADI Stop: 03/19/17 16:00 Last Admin: 03/19/17 13:44 Dose: 20 mg Furosemide (Lasix) 20 mg IVPUSH NOW ONE Stop: 03/19/17 10:41 Last Admin: 03/19/17 11:22 Dose: 20 mg Ceftriaxone Sodium 1 gm/ (Sodium Chloride) 100 mls @ 200 mls/hr IV ONETIME ONE Stop: 03/15/17 17:18 Last Admin: 03/15/17 17:05 Dose: 200 mls/hr Promethazine HCl 12.5 mg/ (Sodium Chloride) 50.5 mls @ 100 mls/hr IV Q6H PRN PRN Reason: Nausea/Vomiting Magnesium Sulfate (Magnesium Sulfate 2 Gm In Water 50 Ml) 50 mls @ 50 mls/hr IV ONETIME ONE Stop: 03/15/17 23:59 Last Admin: 03/15/17 23:18 Dose: 50 mls/hr Ceftriaxone Sodium 1 gm/ (Sodium Chloride) 100 mls @ 200 mls/hr IV Q24H [facility] Last Admin: 03/16/17 16:32 Dose: 200 mls/hr Ceftriaxone Sodium 1 gm/ (Dextrose/Water) 100 mls @ 200 mls/hr IV Q24H [facility] Last Admin: 03/17/17 16:12 Dose: 200 mls/hr Levofloxacin/Dextrose 750 mg/ (Premix) 150 mls @ 100 mls/hr IV Q48H [facility] Levofloxacin/Dextrose 750 mg/ (Premix) 150 mls @ 100 mls/hr IV ONETIME ONE Stop: 03/18/17 15:29 Last Admin: 03/18/17 14:20 Dose: 100 mls/hr Levalbuterol HCl (Xopenex) Confirm Administered Dose 1.25 mg .ROUTE .STK-MED ONE Stop: 03/18/17 13:10 Last Admin: 03/18/17 13:14 Dose: 1.25 mg Levalbuterol HCl (Xopenex) 1.25 mg NEB Q6HRRT PRN PRN Reason: Shortness of Breath Losartan Potassium (Cozaar) 12.5 mg PO BID [facility] Magnesium Oxide (Magnesium Oxide) 400 mg PO TID [facility] Stop: 03/17/17 21:01 Last Admin: 03/17/17 20:16 Dose: 400 mg Magnesium Sulfate (Pharmacy To Dose - Magnesium Replacement) 1 dose .XX ASDIRECTED [facility] Methotrexate (Methotrexate) 20 mg PO Garcia@0900 [facility] Last Admin: 03/18/17 08:20 Dose: 20 mg Methylprednisolone Sodium Succinate (Solu-Medrol) 125 mg IVPUSH Q8H [facility] Last Admin: 03/19/17 06:07 Dose: 125 mg Non-Formulary Medication (Flaxseed Oil) 1,000 mg PO DAILY [facility] Potassium Chloride (Pharmacy To Dose - Potassium Replacement) 1 dose .XX ASDIRECTED [facility] Potassium Chloride (Klor-Con M20) 40 meq PO Q4H [facility] Stop: 03/17/17 18:01 Last Admin: 03/17/17 17:08 Dose: 40 meq Prednisone (Prednisone) 10 mg PO We@0800 [facility] - Exam Quality Assessment: Supplemental Oxygen, DVT Prophylaxis General: Alert, Oriented, Cooperative, No Acute Distress HEENT: Pupils Equal, EOMI, Mucous Membr. Moist/[place] Neck: Supple Lungs: Clear to Auscultation, Decreased Breath Sounds (mid to lower lobes) Cardiovascular: Regular Rate, Regular Rhythm GI/Abdominal Exam: Normal Bowel Sounds, Soft, Non-Tender (Female) Exam: Deferred Extremities: Normal Inspection, No Pedal Edema, Normal Capillary Refill Peripheral Pulses: 1+: Dorsalis Pedis (L), Dorsalis Pedis (R) Neurological: No New Focal Deficit, Other (mild short term memory impairment) Psy/Mental Status: Alert, Normal Affect, Normal Mood - Problem List & Annotations (1) Hypoxia SNOMED Code(s): 193948312 Code(s): R09.02 - HYPOXEMIA Status: Acute Priority: High Current Visit : Yes (2) Acute exacerbation of CHF (congestive heart failure) SNOMED Code(s): 73467567 Code(s): I50.9 - HEART FAILURE, UNSPECIFIED Status: Acute Priority: High Current Visit: Yes Qualifiers: Congestive heart failure type: diastolic Qualified Code(s): I50.33 - Acute on chronic diastolic (congestive) heart failure (3) Chronic renal insufficiency, stage III (moderate) SNOMED Code(s): 081137166 Code(s): N18.3 - CHRONIC KIDNEY DISEASE, STAGE 3 (MODERATE) Status: Acute Priority: High Current Visit: Yes (4) Rheumatoid arthritis SNOMED Code(s): 25674583 Code(s): M06.9 - RHEUMATOID ARTHRITIS, UNSPECIFIED Status: Chronic Priority: Medium Current Visit: Yes Qualifiers: Rheumatoid arthritis location: multiple sites Rheumatoid factor presence: unspecified presence Qualified Code(s): M06.9 - Rheumatoid arthritis, unspecified - Problem List Review Problem List Initiated/Reviewed/Updated: Yes - My Orders Last 24 Hours: My Active Orders 03/20/17 09:00 Furosemide [Lasix] 60 mg PO DAILY 03/20/17 12:15 Doxycycline [Vibramycin] 100 mg PO BID 03/20/17 14:25 RESPIRATORY PANEL BY PCR [MREF] Urgent 03/21/17 10:45 BASIC METABOLIC PANEL,BMP [CHEM] DAILY CBC WITH AUTO DIFF [HEME] DAILY MAGNESIUM [CHEM] DAILY 03/22/17 10:45 BASIC METABOLIC PANEL,BMP [CHEM] DAILY CBC WITH AUTO DIFF [HEME] DAILY MAGNESIUM [CHEM] DAILY - Plan Plan:: Assessment/Plan: Acute: Respiratory Distress/Hypoxia - Likely 2/2 CHF and Pulmonary Fibrosis - Supplemental O2 - Follow Up CXR intial f/up shows increasing interstitial change like due to worsening pulmonary vascular congestion. Repeat CXR shows improved and stable findings of diffuse interstitial changes -CT of chest with findings of emphysema and pulmonary fibrosis - Negative flu, Strep pneumonia and mycoplasma screening. Negative blood cultures. - Echo with EF of 60-65% no valvular concerns. - BNP 1216 ---> 821 --> 1072 -- repeat today, pending - IS and FV as directed - IV abx -- has had levaquin IV x 5 days- will DC this and place on PO doxycycline BID also for antiinflammatory purposes with RA hx, florastor. CHF --echo with EF of 60-65% as above - Continue Heart failure protocol: diuretics, salt/fluid restriction, is/os and daily weight check - Cont to diurese; home dose of lasix is 60mg PO Qam; will add spironolactone 25mg daily Elevated CRP - Contributing factor is hx RA/Auto-immune Disease Resolved: UTI - UA suggestive of UTI--UC with mixed jeri no growth-- no need for further abx. - Pos suprapubic tenderness - Risk Factor: Urinary Incontinence - Received IV Rocephin in ED Chronic: Fracture to foot (daughter states "just from walking" and "horrible osteoporosis ") Hx/o PAF; now off xarelto, ASA only HTN- b/p's stable and under good control HLD Pulmonary Fibrosis--? not formally diagnosed. RA- chronic MTX tx--hold MTX while in hospital/ill. 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 Add low dose coreg 3.125 mg BID Restart Losartan at low dose- follow renal status [employer] for Cognitive eval Routine AM Labs Continue PT/OT/RT DVT PPx: Lovenox SubQ daily SW/CM for d/c planning--Plans for DC to SNF within next 24-48 hours if able to control hypoxia and wean down on O2 flow; discussed with patient and daugher will likely DC on O2 at this time. Ambulate as tolerated- with CAM boot at all times. Code status: CPR only LOS>96 hours, gradual but slower than expected response to therapy
[2017-03-21] MEDS: Cholecalciferol (Vitamin D3) 1,000 Unit Tab PO SCH (09:19)
[2017-03-21] MEDS: Aspirin 81 MG Tab.EC PO SCH (09:19)
[2017-03-21] MEDS: Doxycycline 100 MG Cap PO SCH ×2 (09:19→22:03)
[2017-03-21] MEDS: Calcium Carbonate 600 MG Tab PO SCH (09:19)
[2017-03-21] MEDS: Vitamin B Complex With Vitamin C Cap PO SCH (09:19)
[2017-03-21] MEDS: Furosemide 20 MG Tab PO SCH (09:20)
[2017-03-21] MEDS: Carvedilol 3.125 MG Tab PO SCH ×2 (09:20→22:02)
[2017-03-21] MEDS: Losartan 25 MG Tab PO SCH ×2 (09:23→22:02)
[2017-03-21] MEDS: Enoxaparin 40 MG/0.4 ML Syringe SUBCUT SCH (09:26)
[2017-03-21] MEDS ORDERED: Acetaminophen 325 MG Tab PO PRN (10:15)
[2017-03-21] MEDS: Acetaminophen 325 MG Tab PO PRN (10:36)
[2017-03-21] MEDS: Lidocaine 5% 700 MG Patch TOP SCH (10:37)
[2017-03-21] MEDS: Acetaminophen/HYDROcodone 325-5 MG Tab PO PRN (22:08)
[2017-03-22] MEDS: Multivitamins,Therapeutic Tab PO SCH (06:17)
[2017-03-22] MEDS: Pantoprazole 40 MG Tab.CR PO SCH (06:17)
[2017-03-22] MEDS: Levothyroxine 112 MCG Tab PO SCH (06:17)
[2017-03-22] MEDS: methylPREDNISolone Sodium Succinate 40 MG/1 ML SDV IVPUSH SCH ×2 (06:17→18:42)
[2017-03-22] MEDS: Aspirin 81 MG Tab.EC PO SCH (08:12)
[2017-03-22] MEDS: Carvedilol 3.125 MG Tab PO SCH ×2 (08:12→20:59)
[2017-03-22] MEDS: Enoxaparin 40 MG/0.4 ML Syringe SUBCUT SCH (08:12)
[2017-03-22] MEDS: Furosemide 20 MG Tab PO SCH (08:12)
[2017-03-22] MEDS: Vitamin B Complex With Vitamin C Cap PO SCH (08:13)
[2017-03-22] MEDS: Doxycycline 100 MG Cap PO SCH ×2 (08:13→20:56)
[2017-03-22] MEDS: Cholecalciferol (Vitamin D3) 1,000 Unit Tab PO SCH (08:13)
[2017-03-22] MEDS: Losartan 25 MG Tab PO SCH ×2 (08:13→20:57)
[2017-03-22] MEDS: Calcium Carbonate 600 MG Tab PO SCH (08:13)
[2017-03-22] MEDS: Lidocaine 5% 700 MG Patch TOP SCH (12:08)
--- NOTE | 2017-03-22 12:56 | PCM.PN ---
- General Info Date of Service: 03/22/17 Functional Status: Reports: Tolerating Diet, Urinating - Review of Systems General: Reports: Weakness, Fatigue HEENT: Reports: No Symptoms Pulmonary: Reports: Shortness of Breath Cardiovascular: Reports: No Symptoms Gastrointestinal: Reports: No Symptoms Genitourinary: Reports: No Symptoms Musculoskeletal: Reports: No Symptoms Skin: Reports: No Symptoms Neurological: Reports: No Symptoms Psychiatric: Reports: No Symptoms - Patient Data Vitals - Most Recent: Last Vital Signs Temp 36.1 C 03/22/17 07:39 Pulse 76 03/22/17 08:12 Resp 19 03/22/17 07:39 BP 134/75 03/22/17 08:13 Pulse Ox 97 03/22/17 07:39 Weight - Most Recent: 57.691 kg I&O - Last 24 Hours: Intake & Output 03/21/17 03/22/17 03/22/17 22:59 06:59 14:59 Intake Total 760 400 120 Output Total 600 Balance 760 -200 120 Lab Results Last 24 Hours: Laboratory Results - last 24 hr 03/22/17 03/22/17 Range/Units 05:53 05:53 WBC 14.89 H (3.98-10.04) K/mm3 RBC 3.70 L (3.98-5.22) M/mm3 Hgb 10.9 L (11.2-15.7) gm/L Hct 33.6 L (34.1-44.9) % MCV 90.8 (79.4-94.8) fl MCH 29.5 (25.6-32.2) pg MCHC 32.4 (32.2-35.5) g/dl RDW Std Deviation 50.0 H (36.4-46.3) fL Plt Count 631 H (182-369) K/mm3 MPV 9.2 L (9.4-12.3) fl Neut % (Auto) 81.2 H (34.0-71.1) % Lymph % (Auto) 10.6 L (19.3-51.7) % [place] % (Auto) 7.1 (4.7-12.5) % Eos % (Auto) 0 L (0.7-5.8) Baso % (Auto) 0.1 (0.1-1.2) % Neut # (Auto) 12.09 H (1.56-6.13) K/mm3 Lymph # (Auto) 1.58 (1.18-3.74) K/mm3 [place] # (Auto) 1.06 H (0.24-0.36) K/mm3 Eos # (Auto) 0.00 L (0.04-0.36) K/mm3 Baso # (Auto) 0.01 (0.01-0.08) K/mm3 Manual Slide Review Abnormal smear Sodium 139 (136-145) mEq/L Potassium 3.8 (3.5-5.1) mEq/L Chloride 104 (98-107) mEq/L Carbon Dioxide 27 (21-32) mEq/L Anion Gap 11.8 (5-15) BUN 42 H (7-18) mg/dL Creatinine 1.0 (0.55-1.02) mg/dL Est Cr Clr Drug Dosing 40.98 mL/min Estimated GFR (MDRD) 54 (>60) mL/min BUN/Creatinine Ratio 42.0 H (14-18) Glucose 110 (83-115) mg/dL Calcium 9.4 (8.5-10.1) mg/dL Magnesium 2.2 (1.8-2.4) mg/dl Juan Results Last 24 Hours: Microbiology 03/20/17 14:25 Respiratory Virus Panel (PCR) (JUAN) - Final Nasopharyngeal Swab 03/18/17 14:33 Aerobic Blood Culture - Preliminary Blood - Venous - Lab Draw NO GROWTH AFTER 3 DAYS Anaerobic Blood Culture - Preliminary NO GROWTH AFTER 3 DAYS 03/18/17 13:55 Aerobic Blood Culture - Preliminary Blood - Venous NO GROWTH AFTER 3 DAYS Anaerobic Blood Culture - Preliminary NO GROWTH AFTER 3 DAYS Med Orders - Current: Current Medications Acetaminophen (Tylenol) 650 mg PO Q4H PRN PRN Reason: Pain (Mild 1-3)/fever Last Admin: 03/21/17 10:36 Dose: 650 mg Acetaminophen (Tylenol) 650 mg PO Q4H PRN PRN Reason: Pain Hydrocodone Bitart/Acetaminophen ([place]rie 325-5 Mg) 1 tab PO Q4H PRN PRN Reason: Pain (moderate 4-6) Last Admin: 03/21/17 22:08 Dose: 1 tab Albuterol/Ipratropium (Duoneb 3.0-0.5 Mg/3 Ml) 3 ml NEB Q4H PRN PRN Reason: Shortness Of Breath/wheezing Last Admin: 03/16/17 21:34 Dose: 3 ml Aspirin (Halfprin) 81 mg PO DAILY [facility] Last Admin: 03/22/17 08:12 Dose: 81 mg Bisacodyl (Dulcolax) 5 mg PO DAILY PRN PRN Reason: Constipation Calcium Carbonate/Glycine (Calcium Carbonate) 600 mg PO DAILY [facility] Last Admin: 03/22/17 08:13 Dose: 600 mg Carvedilol (Coreg) 3.125 mg PO BID [facility] Last Admin: 03/22/17 08:12 Dose: 3.125 mg Cholecalciferol (Vitamin D3) 1,000 units PO DAILY [facility] Last Admin: 03/22/17 08:13 Dose: 1,000 units Docusate Sodium (Colace) 100 mg PO BID PRN PRN Reason: Constipation Doxycycline Hyclate (Vibramycin) 100 mg PO BID [facility] Last Admin: 03/22/17 08:13 Dose: 100 mg Enoxaparin Sodium (Lovenox) 40 mg SUBCUT DAILY [facility] Last Admin: 03/22/17 08:12 Dose: 40 mg Furosemide (Lasix) 60 mg PO DAILY [facility] Last Admin: 03/22/17 08:12 Dose: 60 mg Hydralazine HCl (Apresoline) 10 mg IVPUSH Q4H PRN PRN Reason: Hypertension Hydromorphone HCl (Dilaudid) 0.25 mg IVPUSH Q2H PRN PRN Reason: Pain (severe 7-10) Levalbuterol HCl (Xopenex) 1.25 mg NEB QID PRN PRN Reason: Shortness of Breath Last Admin: 03/20/17 12:16 Dose: 1.25 mg Levothyroxine Sodium (Levothyroxine) 112 mcg PO ACBRK [facility] Last Admin: 03/22/17 06:17 Dose: 112 mcg Lidocaine (Lidoderm 5%) 700 mg TOP Q24H [facility] Last Admin: 03/22/17 12:08 Dose: 700 mg Lorazepam (Ativan) 0.5 mg IV Q6H PRN PRN Reason: Anxiety Losartan Potassium (Cozaar) 12.5 mg PO BID [facility] Last Admin: 03/22/17 08:13 Dose: 12.5 mg Methylprednisolone Sodium Succinate (Solu-Medrol) 40 mg IVPUSH Q12H [facility] Metoprolol Tartrate (Lopressor) 5 mg IVPUSH Q4H PRN PRN Reason: Tachycardia Last Admin: 03/18/17 09:57 Dose: 5 mg Miscellaneous Information (Remove Patch) 1 ea TRDERM Q24H [facility] Last Admin: 03/22/17 12:12 Dose: 1 ea Multivitamins (Thera) 1 each PO WITHBREAKFAST [facility] Last Admin: 03/22/17 06:17 Dose: 1 each Ondansetron HCl (Zofran) 4 mg IV Q6H PRN PRN Reason: Nausea/Vomiting Pantoprazole Sodium (Protonix) 40 mg PO DAILY@0700 [facility] Last Admin: 03/22/17 06:17 Dose: 40 mg Polyethylene Glycol (Miralax) 17 gm PO DAILY PRN PRN Reason: Constipation Senna/Docusate Sodium (Senna Plus) 1 tab PO BID PRN PRN Reason: Constipation Last Admin: 03/16/17 10:43 Dose: 1 tab Sodium Chloride (Saline Flush) 10 ml FLUSH ASDIRECTED PRN PRN Reason: Keep Vein Open Last Admin: 03/15/17 15:18 Dose: 10 ml Temazepam (Restoril) 7.5 mg PO BEDTIME PRN PRN Reason: Sleep Vitamin B Complex/Vitamin C (Super B With Vitamin C) 1 cap PO DAILY [facility] Last Admin: 03/22/17 08:13 Dose: 1 cap Discontinued Medications Denosumab (Prolia) 60 mg SUBCUT ASDIRECTED [facility] Furosemide (Lasix) 40 mg IVPUSH NOW ONE Stop: 03/15/17 14:33 Last Admin: 03/15/17 15:12 Dose: 40 mg Furosemide (Lasix) 20 mg PO BIDDIURETIC LADI Last Admin: 03/18/17 06:29 Dose: 20 mg Furosemide (Lasix) 20 mg IVPUSH NOW ONE Stop: 03/18/17 12:10 Last Admin: 03/18/17 12:29 Dose: 20 mg Furosemide (Lasix) 20 mg PO BIDDIURETIC LADI Stop: 03/19/17 16:00 Last Admin: 03/19/17 13:44 Dose: 20 mg Furosemide (Lasix) 20 mg IVPUSH NOW ONE Stop: 03/19/17 10:41 Last Admin: 03/19/17 11:22 Dose: 20 mg Ceftriaxone Sodium 1 gm/ (Sodium Chloride) 100 mls @ 200 mls/hr IV ONETIME ONE Stop: 03/15/17 17:18 Last Admin: 03/15/17 17:05 Dose: 200 mls/hr Promethazine HCl 12.5 mg/ (Sodium Chloride) 50.5 mls @ 100 mls/hr IV Q6H PRN PRN Reason: Nausea/Vomiting Magnesium Sulfate (Magnesium Sulfate 2 Gm In Water 50 Ml) 50 mls @ 50 mls/hr IV ONETIME ONE Stop: 03/15/17 23:59 Last Admin: 03/15/17 23:18 Dose: 50 mls/hr Ceftriaxone Sodium 1 gm/ (Sodium Chloride) 100 mls @ 200 mls/hr IV Q24H [facility] Last Admin: 03/16/17 16:32 Dose: 200 mls/hr Ceftriaxone Sodium 1 gm/ (Dextrose/Water) 100 mls @ 200 mls/hr IV Q24H [facility] Last Admin: 03/17/17 16:12 Dose: 200 mls/hr Levofloxacin/Dextrose 750 mg/ (Premix) 150 mls @ 100 mls/hr IV Q48H [facility] Levofloxacin/Dextrose 750 mg/ (Premix) 150 mls @ 100 mls/hr IV ONETIME ONE Stop: 03/18/17 15:29 Last Admin: 03/18/17 14:20 Dose: 100 mls/hr Levalbuterol HCl (Xopenex) Confirm Administered Dose 1.25 mg .ROUTE .STK-MED ONE Stop: 03/18/17 13:10 Last Admin: 03/18/17 13:14 Dose: 1.25 mg Levalbuterol HCl (Xopenex) 1.25 mg NEB Q6HRRT PRN PRN Reason: Shortness of Breath Losartan Potassium (Cozaar) 12.5 mg PO BID [facility] Magnesium Oxide (Magnesium Oxide) 400 mg PO TID [facility] Stop: 03/17/17 21:01 Last Admin: 03/17/17 20:16 Dose: 400 mg Magnesium Sulfate (Pharmacy To Dose - Magnesium Replacement) 1 dose .XX ASDIRECTED [facility] Methotrexate (Methotrexate) 20 mg PO Garcia@0900 [facility] Last Admin: 03/18/17 08:20 Dose: 20 mg Methylprednisolone Sodium Succinate (Solu-Medrol) 125 mg IVPUSH Q8H [facility] Last Admin: 03/19/17 06:07 Dose: 125 mg Methylprednisolone Sodium Succinate (Solu-Medrol) 80 mg IVPUSH Q12H [facility] Last Admin: 03/22/17 06:17 Dose: 80 mg Non-Formulary Medication (Flaxseed Oil) 1,000 mg PO DAILY [facility] Potassium Chloride (Pharmacy To Dose - Potassium Replacement) 1 dose .XX ASDIRECTED [facility] Potassium Chloride (Klor-Con M20) 40 meq PO Q4H [facility] Stop: 03/17/17 18:01 Last Admin: 03/17/17 17:08 Dose: 40 meq Prednisone (Prednisone) 10 mg PO We@0800 [facility] - Exam Quality Assessment: Supplemental Oxygen, DVT Prophylaxis General: Alert, Oriented, Cooperative, No Acute Distress HEENT: Pupils Equal, Pupils Reactive, EOMI Neck: Supple, Trachea Midline Lungs: Normal Respiratory Effort, Decreased Breath Sounds Cardiovascular: Regular Rate GI/Abdominal Exam: Normal Bowel Sounds, Soft, Non-Tender, No Organomegaly, No Distention (Female) Exam: Deferred Back Exam: Normal Inspection Extremities: Normal Inspection Skin: Warm Neurological: No New Focal Deficit, Normal Speech Psy/Mental Status: Alert, Normal Affect, Normal Mood - Problem List Review Problem List Initiated/Reviewed/Updated: Yes - My Orders Last 24 Hours: My Active Orders 03/22/17 02:49 Up With Assistance [RC] ASDIRECTED 03/22/17 12:53 methylPREDNISolone Sod Succ [Solu-MEDROL] 40 mg IVPUSH Q12H - Plan Plan:: Assessment/Plan: Acute: Respiratory Distress/Hypoxia - Likely 2/2 CHF and Pulmonary Fibrosis - Supplemental O2 - Follow Up CXR intial f/up shows increasing interstitial change like due to worsening pulmonary vascular congestion. Repeat CXR shows improved and stable findings of diffuse interstitial changes -CT of chest with findings of emphysema and pulmonary fibrosis - Negative flu, Strep pneumonia and mycoplasma screening. Negative blood cultures. - Echo with EF of 60-65% no valvular concerns. - BNP 1216 ---> 821 --> 1072 -- repeat today, pending - IS and FV as directed - IV abx -- has had levaquin IV x 5 days- will DC this and place on PO doxycycline BID also for antiinflammatory purposes with RA hx, florastor. CHF --echo with EF of 60-65% as above - Continue Heart failure protocol: diuretics, salt/fluid restriction, is/os and daily weight check - Cont to diurese; home dose of lasix is 60mg PO Qam; will add spironolactone 25mg daily Elevated CRP - Contributing factor is hx RA/Auto-immune Disease Resolved: UTI - UA suggestive of UTI--UC with mixed jeri no growth-- no need for further abx. - Pos suprapubic tenderness - Risk Factor: Urinary Incontinence - Received IV Rocephin in ED Chronic: Fracture to foot (daughter states "just from walking" and "horrible osteoporosis ") Hx/o PAF; now off xarelto, ASA only HTN- b/p's stable and under good control HLD Pulmonary Fibrosis--? not formally diagnosed. RA- chronic MTX tx--hold MTX while in hospital/ill. 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 Add low dose coreg 3.125 mg BID Restart Losartan at low dose- follow renal status [employer] for Cognitive eval Steroid taper to prednisone 10 mg daily as tolerated. Routine AM Labs Continue PT/OT/RT DVT PPx: Lovenox SubQ daily SW/CM for d/c planning--Plans for DC to SNF within next 24-48 hours if able to control hypoxia and wean down on O2 flow; discussed with patient and daugher will likely DC on O2 at this time. Ambulate as tolerated- with CAM boot at all times. Code status: CPR only LOS>96 hours, gradual but slower than expected response to therapy
[2017-03-22] MEDS: Acetaminophen/HYDROcodone 325-5 MG Tab PO PRN (18:43)
[2017-03-23] MEDS: Pantoprazole 40 MG Tab.CR PO SCH (06:21)
[2017-03-23] MEDS: methylPREDNISolone Sodium Succinate 40 MG/1 ML SDV IVPUSH SCH (06:21)
[2017-03-23] MEDS: Multivitamins,Therapeutic Tab PO SCH (06:22)
[2017-03-23] MEDS: Levothyroxine 112 MCG Tab PO SCH (06:22)
[2017-03-23] MEDS: Enoxaparin 40 MG/0.4 ML Syringe SUBCUT SCH (09:25)
[2017-03-23] MEDS: Vitamin B Complex With Vitamin C Cap PO SCH (09:25)
[2017-03-23] MEDS: Doxycycline 100 MG Cap PO SCH (09:26)
[2017-03-23] MEDS: Calcium Carbonate 600 MG Tab PO SCH (09:26)
[2017-03-23] MEDS: Aspirin 81 MG Tab.EC PO SCH (09:26)
[2017-03-23] MEDS: Cholecalciferol (Vitamin D3) 1,000 Unit Tab PO SCH (09:26)
[2017-03-23] MEDS: Losartan 25 MG Tab PO SCH (09:27)
[2017-03-23] MEDS: Furosemide 20 MG Tab PO SCH (09:28)
[2017-03-23] MEDS: Carvedilol 3.125 MG Tab PO SCH (09:28)
--- NOTE | 2017-03-23 09:40 | PCM.DCSUM1 ---
Discharge Summary - Hospital Course Free Text/Narrative:: This is a 76 yo elderly white female with past medical hx/o defibrillation, heart failure with unknown EF, heart murmur, hyperlipidemia, hypertension, pulmonary fibrosis, RA, urinary incontinence, osteoarthritis, osteoporosis, and hypothyroidism,who presents to the emergency department with complaints of worsening dyspnea for over 3 days now. She admits to nonproductive cough, orthopnea and shortness of breath. She carries a history of pulmonary fibrosis but she is not on home O2. Per ED notes, patient has stopped taking her Lasix in the past 4 days. Her initial workup in emergency department shows a CBC remarkable for platelet of 559, neutrophils of 89% and lymphocytes of 9%. Her chemistry is remarkable for sodium of 133, BUN of 24, creatinine of 1.4, AST of 44, CRP of 17.8, proBNP of 1216, and albumin of 2.5. Her UA is suggestive of urinary tract infection. Her CXR shows increased lung markings. Patient is being admitted for respiratory distress/hypoxia and acute congestive heart failure. She is CPR only. She improved while in our care. Oxygen was titrated down to 3L just prior to discharge. CXRs were preformed and showed diffuse interstital changes possibly due to increased pulmonary congestion. Chest CT was preformed showing emphysematous changes and fibrosis. Other incidental findings were also noted per Dr. Mejia, Radiologist. She was evaluated by therapy and SNF placement was recommended due to cognitive impairment and difficulty with ADLs. Son also expressed concern for patients safety. An echo was preformed showing EF of 60-65 %. Mild aortic sclerosis. Mild aortic valve regurgitation. Mild mitral valve regurgitation. mild to moderate tricuspid valve regurgitation. The right ventricular systolic pressure is mild to moderately elevated at 46.6mmHG. UA was negative. Reparatory panel was negative. Influenza was negative. Blood cultures were negative. Overall she is doing well. She is sitting in bed eating today and reports she feels good. Oxygen saturations are in the low 90s on 3L. She is to be discharged today to [facility]. Due to hypotension her cozaar and coreg were reduced. She will be started on a prednisone taper. She has had back pain while here and a lidocaine patch was initiated. This will be prescribed for home as well. She is to follow-up with her PCP within 7-10 days. - Discharge Data Discharge Date: 03/23/17 (Admit Date: 03/15/17) Discharge Disposition: DC/Tfer to SNF 03 Condition: Good - Discharge Diagnosis/Problem(s) (1) Acute exacerbation of CHF (congestive heart failure) SNOMED Code(s): 55774522 ICD Code: I50.9 - HEART FAILURE, UNSPECIFIED Status: Acute Priority: High Current Visit: Yes Qualifiers: Congestive heart failure type: diastolic Qualified Code(s): I50.33 - Acute on chronic diastolic (congestive) heart failure (2) Chronic renal insufficiency, stage III (moderate) SNOMED Code(s): 693549201 ICD Code: N18.3 - CHRONIC KIDNEY DISEASE, STAGE 3 (MODERATE) Status: Acute Priority: High Current Visit: Yes (3) Hypoxia SNOMED Code(s): 955514167 ICD Code: R09.02 - HYPOXEMIA Status: Acute Priority: High Current Visit : Yes (4) Rheumatoid arthritis SNOMED Code(s): 68156746 ICD Code: M06.9 - RHEUMATOID ARTHRITIS, UNSPECIFIED Status: Chronic Priority: Medium Current Visit: Yes Qualifiers: Rheumatoid arthritis location: multiple sites Rheumatoid factor presence: unspecified presence Qualified Code(s): M06.9 - Rheumatoid arthritis, unspecified (5) Back pain SNOMED Code(s): 084357958 ICD Code: M54.9 - DORSALGIA, UNSPECIFIED Status: Acute Priority: Medium Current Visit: Yes Qualifiers: Back pain location: low back pain Chronicity: unspecified Back pain laterality: midline Sciatica presence: unspecified whether sciatica present Qualified Code(s): M54.5 - Low back pain - Patient Summary/Data Consults: Consultations 03/16/17 11:26 Consult to Speech Language Pathology [[employer] Evaluation and Treatment] [CONS] Routine - Patient Instructions Diet: Heart Healthy Diet, Low Sodium, Fluid Restriction Fluid Restriction: 2000 mL Activity: As Tolerated Driving: Do Not Drive Showering/Bathing: May Shower Notify Provider of: Fever, Drainage, Nausea and/or Vomiting (worsening SOB ) - Discharge Plan Prescriptions/Med Rec: RX: Carvedilol [Coreg] 3.125 mg PO BID #40 tablet RX: Lidocaine 5% [Lidoderm 5%] 700 mg TOP Q24H #1 box RX: Losartan [Cozaar] 12.5 mg PO BID #30 tablet RX: predniSONE See Taper PO .TAPER #42 tablet Home Medications: Home Meds RX: Aspirin [Ecotrin] 81 mg PO DAILY 12/22/15 [History] RX: Calcium Carbonate [Calcium] 600 mg PO DAILY 12/22/15 [History] RX: Cholecalciferol (Vitamin D3) [Vitamin D3] 1,000 units PO DAILY 12/22/15 [ History] RX: Denosumab [Prolia] 60 mg SUBCUT ASDIRECTED 12/22/15 [History] RX: Flaxseed Oil 1,000 mg PO DAILY 12/22/15 [History] RX: Furosemide [Lasix] 60 mg PO DAILY 12/22/15 [History] RX: Levothyroxine [Synthroid] 112 mcg PO DAILY 12/22/15 [History] RX: Methotrexate 20 mg PO GILMAN 12/22/15 [History] RX: Omeprazole 20 mg PO DAILY 12/22/15 [History] RX: Multivitamins,Therapeutic [Thera] 1 each PO WITHBREAKFAST tablet 12/27/15 [ Rx] RX: Naproxen Sodium 220 mg PO BID PRN 03/15/17 [History] RX: Vitamin B Complex [B Complex] 1 tab PO DAILY 03/15/17 [History] RX: Carvedilol [Coreg] 3.125 mg PO BID #40 tablet 03/23/17 [Rx] RX: Lidocaine 5% [Lidoderm 5%] 700 mg TOP Q24H #1 box 03/23/17 [Rx] RX: Losartan [Cozaar] 12.5 mg PO BID #30 tablet 03/23/17 [Rx] RX: predniSONE See Taper PO .TAPER #42 tablet 03/23/17 [Rx] Patient Handouts: Hypoxemia, Urinary Tract Infection, Adult, [id number], Oxygen Use at Home, Heart Failure, [id number] Forms: ED Department Discharge Referrals: Kallie Cazares MD [Primary Care Provider] - - Discharge Summary/Plan Comment DC Time >30 min.: Yes (45 minutes ) - General Info Date of Service: 03/23/17 Admission Dx/Problem (Free Text: Admission Diagnosis/Problem Admission Diagnosis/Problem Hypoxia Hellen is seen this morning resting in chair, eating breakfast. She is not coughing. Denies c/o pain to chest or chest wall with breathing or deep breathing. No nausea today. Voiding without difficulty and moving bowels. Feels "pretty good" this morning. No concerns, slept well. Subjective Update: Follow Up Functional Status: Reports: Pain Controlled, Tolerating Diet, Ambulating, Urinating. Denies: New Symptoms - Review of Systems General: Reports: No Symptoms HEENT: Reports: No Symptoms Pulmonary: Reports: Shortness of Breath (chronic, improved.). Denies: Pleuritic Chest Pain, Cough, Sputum Cardiovascular: Reports: Dyspnea on Exertion (chronic). Denies: Chest Pain, Palpitations, Lightheadedness Gastrointestinal: Reports: No Symptoms Genitourinary: Reports: No Symptoms Musculoskeletal: Reports: No Symptoms Skin: Reports: No Symptoms Neurological: Reports: No Symptoms Psychiatric: Reports: No Symptoms - Patient Data Vitals - Most Recent: Last Vital Signs Temp 97.2 F 03/22/17 23:37 Pulse 76 03/23/17 09:28 Resp 20 03/22/17 23:37 BP 119/75 03/23/17 09:28 Pulse Ox 98 03/22/17 23:37 Weight - Most Recent: 129 lb 1.6 oz I&O - Last 24 hours: Intake & Output 03/22/17 03/23/17 03/23/17 22:59 06:59 14:59 Intake Total 220 125 Output Total 200 350 Balance 20 -225 SONIA Results - Last 24 hrs: Microbiology 03/18/17 14:33 Aerobic Blood Culture - Preliminary Blood - Venous - Lab Draw NO GROWTH AFTER 4 DAYS Anaerobic Blood Culture - Preliminary NO GROWTH AFTER 4 DAYS 03/18/17 13:55 Aerobic Blood Culture - Preliminary Blood - Venous NO GROWTH AFTER 4 DAYS Anaerobic Blood Culture - Preliminary NO GROWTH AFTER 4 DAYS 03/20/17 14:25 Respiratory Virus Panel (PCR) (SONIA) - Final Nasopharyngeal Swab Med Orders - Current: Current Medications Acetaminophen (Tylenol) 650 mg PO Q4H PRN PRN Reason: Pain (Mild 1-3)/fever Last Admin: 03/21/17 10:36 Dose: 650 mg Acetaminophen (Tylenol) 650 mg PO Q4H PRN PRN Reason: Pain Hydrocodone Bitart/Acetaminophen ([place] 325-5 Mg) 1 tab PO Q4H PRN PRN Reason: Pain (moderate 4-6) Last Admin: 03/22/17 18:43 Dose: 1 tab Albuterol/Ipratropium (Duoneb 3.0-0.5 Mg/3 Ml) 3 ml NEB Q4H PRN PRN Reason: Shortness Of Breath/wheezing Last Admin: 03/16/17 21:34 Dose: 3 ml Aspirin (Halfprin) 81 mg PO DAILY [facility] Last Admin: 03/23/17 09:26 Dose: 81 mg Bisacodyl (Dulcolax) 5 mg PO DAILY PRN PRN Reason: Constipation Calcium Carbonate/Glycine (Calcium Carbonate) 600 mg PO DAILY [facility] Last Admin: 03/23/17 09:26 Dose: 600 mg Carvedilol (Coreg) 3.125 mg PO BID [facility] Last Admin: 03/23/17 09:28 Dose: 3.125 mg Cholecalciferol (Vitamin D3) 1,000 units PO DAILY [facility] Last Admin: 03/23/17 09:26 Dose: 1,000 units Docusate Sodium (Colace) 100 mg PO BID PRN PRN Reason: Constipation Doxycycline Hyclate (Vibramycin) 100 mg PO BID [facility] Last Admin: 03/23/17 09:26 Dose: 100 mg Enoxaparin Sodium (Lovenox) 40 mg SUBCUT DAILY [facility] Last Admin: 03/23/17 09:25 Dose: 40 mg Furosemide (Lasix) 60 mg PO DAILY [facility] Last Admin: 03/23/17 09:28 Dose: 60 mg Hydralazine HCl (Apresoline) 10 mg IVPUSH Q4H PRN PRN Reason: Hypertension Hydromorphone HCl (Dilaudid) 0.25 mg IVPUSH Q2H PRN PRN Reason: Pain (severe 7-10) Levalbuterol HCl (Xopenex) 1.25 mg NEB QID PRN PRN Reason: Shortness of Breath Last Admin: 03/20/17 12:16 Dose: 1.25 mg Levothyroxine Sodium (Levothyroxine) 112 mcg PO ACBRK [facility] Last Admin: 03/23/17 06:22 Dose: 112 mcg Lidocaine (Lidoderm 5%) 700 mg TOP Q24H [facility] Last Admin: 03/22/17 12:08 Dose: 700 mg Lorazepam (Ativan) 0.5 mg IV Q6H PRN PRN Reason: Anxiety Losartan Potassium (Cozaar) 12.5 mg PO BID [facility] Last Admin: 03/23/17 09:27 Dose: 12.5 mg Methylprednisolone Sodium Succinate (Solu-Medrol) 40 mg IVPUSH Q12H LADI Last Admin: 03/23/17 06:21 Dose: 40 mg Metoprolol Tartrate (Lopressor) 5 mg IVPUSH Q4H PRN PRN Reason: Tachycardia Last Admin: 03/18/17 09:57 Dose: 5 mg Miscellaneous Information (Remove Patch) 1 ea TRDERM Q24H [facility] Last Admin: 03/22/17 12:12 Dose: 1 ea Multivitamins (Thera) 1 each PO WITHBREAKFAST [facility] Last Admin: 03/23/17 06:22 Dose: 1 each Ondansetron HCl (Zofran) 4 mg IV Q6H PRN PRN Reason: Nausea/Vomiting Pantoprazole Sodium (Protonix) 40 mg PO DAILY@0700 [facility] Last Admin: 03/23/17 06:21 Dose: 40 mg Polyethylene Glycol (Miralax) 17 gm PO DAILY PRN PRN Reason: Constipation Senna/Docusate Sodium (Senna Plus) 1 tab PO BID PRN PRN Reason: Constipation Last Admin: 03/16/17 10:43 Dose: 1 tab Sodium Chloride (Saline Flush) 10 ml FLUSH ASDIRECTED PRN PRN Reason: Keep Vein Open Last Admin: 03/15/17 15:18 Dose: 10 ml Temazepam (Restoril) 7.5 mg PO BEDTIME PRN PRN Reason: Sleep Vitamin B Complex/Vitamin C (Super B With Vitamin C) 1 cap PO DAILY [facility] Last Admin: 03/23/17 09:25 Dose: 1 cap Discontinued Medications Denosumab (Prolia) 60 mg SUBCUT ASDIRECTED [facility] Furosemide (Lasix) 40 mg IVPUSH NOW ONE Stop: 03/15/17 14:33 Last Admin: 03/15/17 15:12 Dose: 40 mg Furosemide (Lasix) 20 mg PO BIDDIURETIC LADI Last Admin: 03/18/17 06:29 Dose: 20 mg Furosemide (Lasix) 20 mg IVPUSH NOW ONE Stop: 03/18/17 12:10 Last Admin: 03/18/17 12:29 Dose: 20 mg Furosemide (Lasix) 20 mg PO BIDDIURETIC LADI Stop: 03/19/17 16:00 Last Admin: 11/20/17 13:44 Dose: 20 mg Furosemide (Lasix) 20 mg IVPUSH NOW ONE Stop: 03/19/17 10:41 Last Admin: 03/19/17 11:22 Dose: 20 mg Ceftriaxone Sodium 1 gm/ (Sodium Chloride) 100 mls @ 200 mls/hr IV ONETIME ONE Stop: 03/15/17 17:18 Last Admin: 03/15/17 17:05 Dose: 200 mls/hr Promethazine HCl 12.5 mg/ (Sodium Chloride) 50.5 mls @ 100 mls/hr IV Q6H PRN PRN Reason: Nausea/Vomiting Magnesium Sulfate (Magnesium Sulfate 2 Gm In Water 50 Ml) 50 mls @ 50 mls/hr IV ONETIME ONE Stop: 03/15/17 23:59 Last Admin: 03/15/17 23:18 Dose: 50 mls/hr Ceftriaxone Sodium 1 gm/ (Sodium Chloride) 100 mls @ 200 mls/hr IV Q24H [facility] Last Admin: 03/16/17 16:32 Dose: 200 mls/hr Ceftriaxone Sodium 1 gm/ (Dextrose/Water) 100 mls @ 200 mls/hr IV Q24H [facility] Last Admin: 03/17/17 16:12 Dose: 200 mls/hr Levofloxacin/Dextrose 750 mg/ (Premix) 150 mls @ 100 mls/hr IV Q48H [facility] Levofloxacin/Dextrose 750 mg/ (Premix) 150 mls @ 100 mls/hr IV ONETIME ONE Stop: 03/18/17 15:29 Last Admin: 03/18/17 14:20 Dose: 100 mls/hr Levalbuterol HCl (Xopenex) Confirm Administered Dose 1.25 mg .ROUTE .STK-MED ONE Stop: 03/18/17 13:10 Last Admin: 03/18/17 13:14 Dose: 1.25 mg Levalbuterol HCl (Xopenex) 1.25 mg NEB Q6HRRT PRN PRN Reason: Shortness of Breath Losartan Potassium (Cozaar) 12.5 mg PO BID [facility] Magnesium Oxide (Magnesium Oxide) 400 mg PO TID LADI Stop: 03/17/17 21:01 Last Admin: 03/17/17 20:16 Dose: 400 mg Magnesium Sulfate (Pharmacy To Dose - Magnesium Replacement) 1 dose .XX ASDIRECTED [facility] Methotrexate (Methotrexate) 20 mg PO Gilman@0900 [facility] Last Admin: 03/18/17 08:20 Dose: 20 mg Methylprednisolone Sodium Succinate (Solu-Medrol) 125 mg IVPUSH Q8H [facility] Last Admin: 03/19/17 06:07 Dose: 125 mg Methylprednisolone Sodium Succinate (Solu-Medrol) 80 mg IVPUSH Q12H [facility] Last Admin: 03/22/17 06:17 Dose: 80 mg Non-Formulary Medication (Flaxseed Oil) 1,000 mg PO DAILY [facility] Potassium Chloride (Pharmacy To Dose - Potassium Replacement) 1 dose .XX ASDIRECTED [facility] Potassium Chloride (Klor-Con M20) 40 meq PO Q4H [facility] Stop: 03/17/17 18:01 Last Admin: 03/17/17 17:08 Dose: 40 meq Prednisone (Prednisone) 10 mg PO We@0800 [facility] - Exam Quality Assessment: Reports: Supplemental Oxygen, DVT Prophylaxis General: Reports: Alert, Oriented, Cooperative, No Acute Distress HEENT: Reports: Pupils Equal, Pupils Reactive, EOMI, Mucous Membr. Moist/[place] Neck: Reports: Supple, Trachea Midline, No JVD, No Thyromegaly Lungs: Reports: Normal Respiratory Effort, Decreased Breath Sounds, Crackles ( course in lower lobes ) Cardiovascular: Reports: Regular Rate, Regular Rhythm GI/Abdominal Exam: Normal Bowel Sounds, Soft, Non-Tender, No Organomegaly, No Distention, No Abnormal Bruit, No Mass, Pelvis Stable (Female) Exam: Deferred Rectal (Female) Exam: Deferred Back Exam: Reports: Normal Inspection, Decreased Range of Motion Extremities: Normal Inspection, Normal Range of Motion, Non-Tender, No Pedal Edema, Normal Capillary Refill Skin: Reports: Warm, Dry, Intact Neurological: Reports: No New Focal Deficit Psy/Mental Status: Reports: Alert, Normal Affect, Normal Mood *Q Meaningful Use (DIS) - VTE *Q VTE Criteria *Q: - Stroke *Q Stroke Criteria *Q: - AMI *Q AMI Criteria *Q:
[2017-03-23] MEDS: Lidocaine 5% 700 MG Patch TOP SCH (11:19)
[2017-03-23 11:52] VITALS: BP 141/73
== END 2017-03-23 11:39 | DRG 205 ==
LOC: JD.ED 14:06 → JD.MS 17:03 → UNDOADMIN 18:08 → UNDODISIN 03-23 11:39
PROVIDERS: ADMIT Internal Medicine; ATTEND Internal Medicine
DX: R09.02 Hypoxemia (principal); I50.33 Acute on chronic diastolic (congestive) heart failure; I13.0 Hypertensive heart and chronic kidney disease with heart failure and stage 1 through stage 4 chronic kidney disease, or unspecified chronic kidney disease; E78.00 Pure hypercholesterolemia, unspecified; N39.0 Urinary tract infection, site not specified; N18.3 Chronic kidney disease, stage 3 (moderate); R79.82 Elevated C-reactive protein (CRP); I95.9 Hypotension, unspecified; M54.9 Dorsalgia, unspecified; I48.0 Paroxysmal atrial fibrillation; Z79.01 Long term (current) use of anticoagulants; E78.5 Hyperlipidemia, unspecified; J84.10 Pulmonary fibrosis, unspecified; M06.9 Rheumatoid arthritis, unspecified; N39.46 Mixed incontinence; M19.90 Unspecified osteoarthritis, unspecified site; E03.9 Hypothyroidism, unspecified; M81.0 Age-related osteoporosis without current pathological fracture; Z79.82 Long term (current) use of aspirin; Z79.899 Other long term (current) drug therapy; Z87.891 Personal history of nicotine dependence
CPT/HCPCS: 36415; 71010; 80053; 81001; 82553; 83735; 83880; 84484; 85025; 85610; 86140; 87086; 93005; 96374; 99285; J0696; J1940; J7030; J7050; 71020; 71020-26; 71250; 71250-26; 80048; 84443; 86738; 87040; 87486; 87581; 87633; 87798; 87804; 87899; 90471; 93010; 93306; 94640; 94667; 94668; 94760; 94761; 94762; 96125-GN; 97110-GO; 97110-GP; 97116-GP; 97162-GP; 97165-GO; 97530-GO; 97530-GP; 97532-GN; A9270; A9270-GY; J1650; J1956; J2920; J2930; J3475; J3490; J7060; J8610